=== PATIENT | female | born 1955 | race Caucasian/White ===

== ENCOUNTER 2020-11-29 23:02 | Inpatient (IN) | payer MEDICARE ==
[~2020-11-29] VITALS: Ht 154.9 cm; Wt 96.1 kg
[2020-11-29 23:05] VITALS: BP 129/91
[2020-11-29] MEDS ORDERED: METFORMIN HCL500 M3 PO (23:14)
[2020-11-29] MEDS ORDERED: ZOFRAN4 MG PO (23:15)
[2020-11-29] MEDS ORDERED: LEVO-T100 MCG PO (23:16)
[2020-11-29] MEDS ORDERED: LOMOTIL 2.5-0.01 TAB PO (23:16)
[2020-11-29] MEDS ORDERED: FUROSEMIDE 40 M40 MG PO (23:17)
[2020-11-29] MEDS ORDERED: KLOR-CON 10 ER10 MEQ PO (23:17)
[2020-11-29] MEDS ORDERED: MELOXICAM15 MG PO (23:17)
[2020-11-29] MEDS ORDERED: CHLORZOXAZONE500 MG PO (23:18)
[2020-11-29] MEDS ORDERED: ALLOPURINOL 10100 M3 PO (23:19)
[2020-11-29] MEDS ORDERED: ALPRAZOLAM XR3 MG PO (23:19)
[2020-11-29] MEDS ORDERED: DOXEPIN HC10 MG/1 ML PO (23:20)
[2020-11-29] MEDS ORDERED: SPIRONOLACTONE50 MG PO (23:21)
[2020-11-29] MEDS ORDERED: IRON18 M1 PO (23:22)
[2020-11-29] MEDS ORDERED: CINNAMON500 MG PO (23:23)
[2020-11-29 23:59] LABS: ABSOLUTE BASOPHILS 0.1 thou/uL (0.0-0.2); ABSOLUTE EOSINOPHILS 0.4 thou/uL (0.0-0.7); ABSOLUTE LYMPHOCYTES 0.9 thou/uL (0.8-5.3); ABSOLUTE MONOCYTES 1.3 thou/uL (0.0-1.2); ABSOLUTE NEUTROPHILS 6.3 thou/uL (1.6-8.1); BASOPHILS 0.9 %; EOSINOPHILS 4.4 %; HEMATOCRIT 32.9 % (37.0-47.0); LYMPHOCYTES 10.4 %; MCH 28.5 pg (26.0-34.0); MCHC 33.3 g/dL (28.0-37.0); MCV 85.6 fL (80.0-100.0); MONOCYTES 14.2 %; MPV 8.5 fl. (7.2-11.1); NUCLEATED RBCS 0 /100WBC; PLATELET COUNT* 310 thou/uL (150-400); POLYS 70.1 %; RBC 3.85 mil/uL (4.20-5.00); RDW-CV 14.1 % (10.5-14.5)
[2020-11-30 00:03] LABS: CALCIUM 7.9 mg/dL (8.5-10.1); POTASSIUM 4.2 mmol/L (3.5-5.1)
[2020-11-30 00:07] LABS: MAGNESIUM 2.1 mg/dL (1.8-2.4); TOTAL BILIRUBIN 0.8 mg/dL (<0.1-1.0); TOTAL PROTEIN 5.7 g/dL (6.4-8.2)
[2020-11-30 00:26] LABS: BE 2.7 mmol/L (-2 to +3); PCO2 40.3 mmHg (35.0-45.0); PO2 84.8 mmHg (75.0-100.0); pH 7.443 (7.340-7.450)
[2020-11-30 09:15] VITALS: BP 124/46
--- NOTE | 2020-11-30 09:15 | NUR ---
CENTRAL LINE ASSESSMENT, TRIPLE LUMEN ACCESSED AT LEFT SUBCLAVIAN. NO REDNESS OR INFLAMMATION NOTED AT SITE. DEFAULT SETTINGS ON IV PUMPS ACTIVE.
[2020-11-30 09:44] LABS: URINE BILIRUBIN NEGATIVE (Negative); URINE BLOOD NEGATIVE (Negative); URINE CLARITY CLEAR; URINE COLOR YELLOW; URINE GLUCOSE-RANDOM NEGATIVE (Negative); URINE KETONES NEGATIVE (Negative); URINE LEUKOCYTES-REFLEX NEGATIVE (Negative); URINE PROTEIN NEGATIVE (Negative); URINE UROBILINOGEN 0.2 E.U./dl (0.2-1.0)
[2020-11-30 09:45] LABS: URINE NITRITE-REFLEX POSITIVE (Negative)
[2020-11-30 09:57] LABS: BACTERIA-REFLEX >30 Many /HPF (None Seen); SQUAMOUS 0-3 Few /LPF (0-3); URINE RBC 0-2 Rare /HPF (0-2); URINE WBC-REFLEX 6-15 Few /HPF (0-5)
[2020-11-30 09:58] LABS: CRYSTALS None Seen /LPF (None Seen); HYALINE CASTS 4-10 Moderate /LPF (None Seen); MUCUS 0-3 Light strn/LPF (None Seen)
--- NOTE | 2020-11-30 10:33 | EKG ---
[place] [address] ELECTROCARDIOGRAM REPORT Name: JOHNALIDA SAMANTHA Room: [place] [address] ADM IN [facility]#: [id number] Admission: 11/30/20 Attend Phys: Torey Carl Discharge: Date of : 55 Date of Service: 11/29/202306 Report #: [id number] THIS REPORT FOR: //name// [facility] ED Test Date: 2020-11-29 Test Time: 23:07:01 Pat Name: ALIDA LOPEZ Department: Room: [facility] Gender: F [employer] Psychologist: JER : 1955 Requested By: Paola Claire Order Number: [id number] MD: Miguel Ángel Hayes Measurements Intervals [place] Rate: 80 P: 23 FL: 203 QRS: -2 QRSD: 105 T: -1 QT: 402 QTc: 464 Interpretive Statements Sinus rhythm Low voltage, precordial leads Borderline T abnormalities, inferior leads No previous ECG available for comparison Electronically Signed On 11-30-2020 10:32:57 CDT by Miguel Ángel Hayes [email or web address] <ELECTRONICALLY SIGNED> By: Miguel Ángel Hayes MD, [facility] 11/30/20 1032 2307 [id number] Miguel Ángel Hayes MD, [facility] /EPI
--- NOTE | 2020-11-30 12:06 | NUR ---
ASSUMED CARE AT 1205, REPORT TAKEN FROM CINDY LARSON.
[2020-11-30 13:15] VITALS: BP 128/54
--- NOTE | 2020-11-30 13:30 | NUR ---
CENTRAL LINE ASSESSMENT, TRIPLE LUMEN ACCESSED AT LEFT SUBCLAVIAN. NO REDNESS OR INFLAMMATION NOTED AT SITE. DEFAULT SETTINGS ON IV PUMPS ACTIVE. LEVOPHED STOPPED PER DR ORDOÑEZ.
[2020-11-30 19:30] VITALS: BP 115/73
[2020-11-30 23:30] VITALS: BP 109/41
[2020-12-01 02:18] VITALS: BP 109/41
[2020-12-01 03:58] VITALS: BP 103/60; BP 110/36
[2020-12-01 05:54] LABS: HEMATOCRIT 31.3 % (37.0-47.0); HEMOGLOBIN 10.5 gm/dL (12.0-15.0); MCH 29.2 pg (26.0-34.0); MCHC 33.6 g/dL (28.0-37.0); MCV 86.8 fL (80.0-100.0); MPV 8.7 fl. (7.2-11.1); RBC 3.6 mil/uL (4.20-5.00); RDW-CV 14.4 % (10.5-14.5); WBC 9.4 thou/uL (4.0-11.0)
[2020-12-01 07:07] LABS: CALCIUM 7.6 mg/dL (8.5-10.1)
[2020-12-01 07:09] LABS: CREATININE 0.8 mg/dL (0.6-1.3)
[2020-12-01 12:00] VITALS: BP 128/66
[2020-12-01 16:00] VITALS: BP 117/52
[2020-12-01 20:00] VITALS: BP 113/51
[2020-12-02 01:23] VITALS: BP 119/51
[2020-12-02 04:06] LABS: GLYCOHEMOGLOBIN (HGB A1C) 6.9 % (4.8-5.6)
[2020-12-02 05:36] VITALS: BP 118/55
--- NOTE | 2020-12-02 07:02 | NUR ---
PATIENT SLEPT PART OF THE NIGHT. PATIENT HAS HAD SEVERAL WATERY STOOLS. IV FLUIDS CONTINUE TO INFUSE ORDERED. PATIENT REMAINS IN ISOLATION FOR CDIFF. WILL CONTINUE TO MONITOR.
[2020-12-02 07:05] LABS: HEMATOCRIT 36.3 % (37.0-47.0); HEMOGLOBIN 11.8 gm/dL (12.0-15.0); MCH 28.2 pg (26.0-34.0); MCHC 32.4 g/dL (28.0-37.0); MCV 86.9 fL (80.0-100.0); MPV 8.2 fl. (7.2-11.1); RBC 4.18 mil/uL (4.20-5.00); RDW-CV 14.3 % (10.5-14.5); WBC 13.1 thou/uL (4.0-11.0)
[2020-12-02 07:08] LABS: CALCIUM 7.9 mg/dL (8.5-10.1); CREATININE 0.8 mg/dL (0.6-1.3); MAGNESIUM 1.6 mg/dL (1.8-2.4); POTASSIUM 3.1 mmol/L (3.5-5.1)
[2020-12-02 08:10] VITALS: BP 128/70
[2020-12-02 12:00] VITALS: BP 137/78
--- NOTE | 2020-12-02 12:39 | NUR ---
ASSUMED CARE OF PT AT 0730. PT A&0X4, DENIES ANY PAIN OR SHORTNESS OF BREATH AT THIS TIME. IN SPECIAL CONTACT ISOLATION FOR CDIFF. PT HAVING LOOSE STOOLS. TRACING SR/ST ON THE MEETING COORDINATOR. ON 3L NC SAT MID 90'S. PT UP WITH 1 ASSIST TO BSC. PT HAD ABDOMINAL XRAY SERIES THIS AM-AWAITING RESULTS AT THIS TIME. PT GOAL FOR TODAY IS INCREASE ACTIVITY AND REPLACE POTASSIUM AND MAGNESIUM PER ELECTROLYTE PROTOCOL. AM ASSESSMENT CHARTED. MEDICATIONS PER JUN. PT REPOSITIONS SELF WITH REMINDERS. HOURLY ROUNDING OBSERVED. BED IN LOW POSITION. CALL LIGHT WITHIN REACH. WILL CONTINUE PLAN OF CARE.
--- NOTE | 2020-12-02 15:20 | NUR ---
Pt is A&O. Resides at home with family. Independent. No DME. No hx of HH or SNF. Goal is home at dc, CM following for needs. Pt is cdiff positive, will need vanc at dc, CM to check the cost. Anticipate dc in a few days.
[2020-12-02 16:00] VITALS: BP 119/62
[2020-12-02 20:23] VITALS: BP 127/72
[2020-12-03 00:01] VITALS: BP 120/57
[2020-12-03 04:09] VITALS: BP 134/61
--- NOTE | 2020-12-03 04:27 | NUR ---
PT ALERT AND ORIENTED, 3L-NC. NEEDS ASSISTANCE TO BEDSIDE COMMODE. STILL HAVING FREQUENT LOOSE WATERY STOOLS. NPO SINCE MIDNIGHT. RECEIVED ALL ABX AND FLUIDS SCHEDULED. REPLACED MAG/K+. NO PAIN OR NAUSEA.
[2020-12-03 05:09] LABS: HEMATOCRIT 34.8 % (37.0-47.0); HEMOGLOBIN 11.7 gm/dL (12.0-15.0); MCH 29.1 pg (26.0-34.0); MCHC 33.6 g/dL (28.0-37.0); MCV 86.6 fL (80.0-100.0); MPV 8.1 fl. (7.2-11.1); RBC 4.02 mil/uL (4.20-5.00); RDW-CV 14.3 % (10.5-14.5); WBC 13.6 thou/uL (4.0-11.0)
[2020-12-03 05:22] LABS: CALCIUM 7.8 mg/dL (8.5-10.1); CREATININE 0.8 mg/dL (0.6-1.3); POTASSIUM 3.8 mmol/L (3.5-5.1)
[2020-12-03 08:10] VITALS: BP 152/72
[2020-12-03 09:38] LABS: % SATURATION 23 % (20-39); IRON 25 ug/dL (50-175)
[2020-12-03 12:00] VITALS: BP 100/50
--- NOTE | 2020-12-03 13:00 | NUR ---
Cdiff positive. Pt now having a high grade SBO, GI following. Anticiapte dc in a few days.
--- NOTE | 2020-12-03 13:57 | NUR ---
NGT PLACED IN RIGHT NARE AT 59CM AND HOOKED TO ILS. CXR ORDERED VERIFYING PLACEMENT. ORDERS RECEIVED FOR CT- UPON PT RETURNING FROM CT-NGT PULLED OUT >20 CM-NGT RE PLACED AND REPEAT CXR COMPLETED TO VERIFY PLACEMENT AGAIN. SCHEDULED VANCO RETENTION ENEMA GIVEN PER EMAR. NPO. SURGERY CONSULT IN PLACE. IVF. DENIES ANY PAIN OR SHORTNESS OF BREATH. AM ASSESSMENT CHARTED. MEDICATIONS PER MAR. CALL LIGHT WITHIN REACH. WILL CONTINUE PLAN OF CARE.
[2020-12-03 16:00] VITALS: BP 102/62
[2020-12-03 21:34] VITALS: BP 116/72
[2020-12-04 00:54] VITALS: BP 93/58
[2020-12-04 04:32] VITALS: BP 100/63
[2020-12-04 05:40] LABS: HEMATOCRIT 38.3 % (37.0-47.0); HEMOGLOBIN 12.8 gm/dL (12.0-15.0); MCH 29.2 pg (26.0-34.0); MCHC 33.3 g/dL (28.0-37.0); MCV 87.6 fL (80.0-100.0); RBC 4.38 mil/uL (4.20-5.00); RDW-CV 14.3 % (10.5-14.5); WBC 11.2 thou/uL (4.0-11.0)
[2020-12-04 05:55] LABS: CALCIUM 7.8 mg/dL (8.5-10.1); POTASSIUM 3.2 mmol/L (3.5-5.1)
[2020-12-04 08:30] VITALS: BP 96/44
[2020-12-04 09:04] VITALS: BP 91/44
[2020-12-04 12:00] VITALS: BP 100/52
--- NOTE | 2020-12-04 12:38 | NUR ---
Cdiff positive. GI following, Pt having diarrhea. Surgery following.
[2020-12-04 16:00] VITALS: BP 104/59
--- NOTE | 2020-12-04 17:58 | CON ---
[address] [address] CONSULTATION Name: ALIDA LOPEZ Room: [address] ADM IN [facility].R.#: [id number] Admission: 12/01/20 Attend Phys: Anup Woodruff Discharge: Date of : 55 Report #: [id number] THIS REPORT FOR: cc: Lambert Jordan James V. DO Namin, Farid M. MD ~ cc: Lambert Jordan DO DATE OF CONSULTATION: 12/03/2020 Please note, at the time of this dictation, the patient was seen by myself. HISTORY OF PRESENT ILLNESS: This is a 65-year-old female who has been having profound weakness and diarrhea and felt very lightheaded for the last couple of weeks. She states she has had diarrhea for about 3 weeks and has gotten progressively worse. She states prior to the onset of her diarrhea, she had been treated for a UTI. She does not recall the medication at that time and then shortly thereafter, she began developing diarrhea and she has gone downhill since that time. On Wednesday, she went to [place]. She was treated and released with some IV fluids. She got 2 liters of normal saline and some nausea medicine and was released. She denies any nausea or vomiting, but she has only been doing clear liquids. She states her abdomen is somewhat a lot more distended with some discomfort and profuse diarrhea. She said, since she has been here and started on the vancomycin, her diarrhea has improved and she is only going about once every 3-4 hours now versus prior to, it was all the time. The patient states she has never had an EGD, but she had a colonoscopy greater than 10 years ago at [facility] and we will obtain those records for our review. The patient states, prior to all of this, her bowel habits were fairly normal. She continues to deny any bright red blood or melena in her stool. ALLERGIES: SULFA AND CODEINE. MEDICATIONS: From home include cinnamon bark, iron, spironolactone, doxepin, alprazolam, allopurinol, potassium, Lasix, meloxicam, levothyroxine, Lomotil, Zofran and metformin. PAST MEDICAL HISTORY: Includes diabetes, thyroid disease, congestive heart failure, gout, anxiety, depression, and iron-deficiency anemia. PAST SURGICAL HISTORY: None. FAMILY HISTORY: Negative for any GI or female cancers [place] [address] CONSULTATION Name: ALIDA LOPEZ Room: [address] IN [facility]#: [id number] Admission: 12/01/20 Attend Phys: Anup Woodruff Discharge: Date of : 55 Report #: [id number] SOCIAL HISTORY: Denies any tobacco, alcohol or illegal drug use. REVIEW OF SYSTEMS: Twelve-point review of systems is essentially negative, except what is mentioned in the HPI. PHYSICAL EXAMINATION: VITAL SIGNS: Temperature 35.7, pulse 112, respirations 18, blood pressure 134/61. HEART: Regular rate and rhythm, somewhat tachycardic. LUNGS: Clear, but diminished. ABDOMEN: Taut. Hyperactive bowel sounds in the upper quadrants. Percussion tympany noted with some tenderness noted mainly in the upper. LABORATORY DATA: Hemoglobin is 11.7, white count is 13.6, platelets are 374. GFR is 72. She did show a urinary tract infection again of E. coli. Abdominal x-ray shows ahaustral appearance of the transverse colon. She has a small bowel high-grade obstruction with significant dilated small bowel loops. No measurement noted of the small bowel loops. IMPRESSION: 1. Diarrhea. 2. Abdominal pain. 3. Leukocytosis. 4. Abnormal abdominal x-ray indicating small bowel obstruction, high grade. 5. Anemia. 6. Positive for urinary tract infection. PLAN: 1. Consult Surgery, Dr. Hooper. 2. Insert a NG tube to intermittent low suction. 3. Continue her vancomycin. 4. Obtain labs, iron studies, ferritin, and B12. 5. Obtain records from [facility] for our review. Thank you for allowing us to participate in this patient's care. Please do not hesitate to call with any questions in regard to this consult. <ELECTRONICALLY SIGNED> By: Bulmaro Anand MD 12/04/20 1758 0717 [id number] Anand MD /nt
--- NOTE | 2020-12-04 18:20 | NUR ---
PT DENIES ANY PAIN, NAUSEA OR SHORTNESS OF BREATH. IVF. TOLERATING CLEAR LIQUID DIET. GI AND SURGERY CONSULT IN PLACE. REPEAT KUB IN AM. PT CONTINUES TO HAVE LIQUID STOOLS. ABDOMEN LESS FIRM. CALL LIGHT WITHIN REACH. WILL CONTINUE PLAN OF CARE.
[2020-12-05] VITALS: BP 109/59
[2020-12-05 04:08] VITALS: BP 99/64
--- NOTE | 2020-12-05 04:49 | NUR ---
PT REPORTS DIARRHEA IMPROVING, LESS FREQUENT. NO REPORTS OF PAIN OR NAUSE JUST SOME HEARTBURN. CAN GET UP WITH ASSISTANCE TO BEDSIDE COMMODE. TOLERATING CLEAR LIQUIDS WELL. SLEPT WELL THIS SHIFT.
[2020-12-05 05:21] LABS: HEMOGLOBIN 12.5 gm/dL (12.0-15.0); MCH 28.2 pg (26.0-34.0); MPV 7.6 fl. (7.2-11.1); RBC 4.44 mil/uL (4.20-5.00); RDW-CV 14.6 % (10.5-14.5); WBC 10.4 thou/uL (4.0-11.0)
[2020-12-05 05:31] LABS: CALCIUM 7.5 mg/dL (8.5-10.1); CREATININE 0.8 mg/dL (0.6-1.3); MAGNESIUM 2.1 mg/dL (1.8-2.4)
[2020-12-05 12:00] VITALS: BP 100/30
--- NOTE | 2020-12-05 12:15 | NUR ---
Anticipate dc in a few days. GI following. Surg following for SBO. Cdiff positive. Pt will need to have diet advanced prior to dc.
--- NOTE | 2020-12-05 15:31 | NUR ---
ASSUMED PT CARE AT 0730. PT IS A&O X4,COOPERATIVE AND SOFT SPOKEN. PT CONTINUES ON ISOLATION FOR CDIFF. PT HAD 1 LOOSE STOOL TODAY. ASSESSMENT COMPLETED, PT DENIES ANY PAIN OR DISCOMFORT. PT VERBALIZES SHE IS ANXIOUS TO GET HOME. SAFETY MEASURES IN PLACE. PT TOLERATING CLEAR LIQUIDS WELL. PT HYPOTENSIVE AT TIMES AND IS ASYMPTOMATIC. BP 100/30 AND RECHECKED AFTER 15 MIN 104/66. PT STATES THIS IS NORMAL FOR HER. ASSIST X1 UP TO BSC. KUB REPEATED TODAY AND RESULTS ON CHART.
[2020-12-05 16:00] VITALS: BP 104/61
[2020-12-05 21:36] VITALS: BP 97/55
[2020-12-05 23:23] VITALS: BP 113/53
[2020-12-06 04:00] VITALS: BP 118/49
--- NOTE | 2020-12-06 04:33 | NUR ---
PT A&OX4, VSS ON 2L NC, PT UP WITH ASSIST TO BSC. IV SALINE LOCKED, ISOLATION MAINTAINED FOR C.DIFF+, NO CO PAIN OR DISCOMFORT. ST WITH PAC'S ON TELE MONITOR. WILL CONTINUE TO MONITOR.
[2020-12-06 07:20] VITALS: BP 113/54
[2020-12-06 07:27] LABS: HEMATOCRIT 37.7 % (37.0-47.0); HEMOGLOBIN 12.3 gm/dL (12.0-15.0); MCH 28.4 pg (26.0-34.0); MCHC 32.7 g/dL (28.0-37.0); MCV 86.8 fL (80.0-100.0); MPV 8.5 fl. (7.2-11.1); RBC 4.35 mil/uL (4.20-5.00); RDW-CV 14.4 % (10.5-14.5); WBC 15.1 thou/uL (4.0-11.0)
[2020-12-06 07:39] LABS: CALCIUM 7.7 mg/dL (8.5-10.1); CREATININE 0.7 mg/dL (0.6-1.3); MAGNESIUM 1.8 mg/dL (1.8-2.4); POTASSIUM 3.4 mmol/L (3.5-5.1)
--- NOTE | 2020-12-06 09:45 | EKG ---
[place] [address] ELECTROCARDIOGRAM REPORT Name: ALIDA LOPEZ Room: [address] ADM IN .R.#: [id number] Admission: 12/01/20 Attend Phys: Torey Carl Discharge: Date of : 55 Date of Service: 12/06/20 0725 Report #: [id number] THIS REPORT FOR: //name// [facility] Test Date: 2020-12-06 Test Time: 07:25:28 Pat Name: ALIDA LOPEZ Department: Room: [address] Gender: F Remote Operations Producer: REMEDIOS : 1955 Requested By: Mu Kang Order Number: [id number] Reading MD: Miguel Ángel Hayes Measurements Intervals [place] Rate: 177 P: [place]: QRS: 4 QRSD: 64 T: -27 QT: 289 QTc: 496 Interpretive Statements Atrial fibrillation nonspecific t wave changes Low voltage, precordial leads Borderline prolonged QT interval Compared to ECG 11/29/2020 23:07:01 Sinus rhythm no longer present Electronically Signed On 12-06-2020 9:45:42 CDT by Miguel Ángel Hayes [email or web address] <ELECTRONICALLY SIGNED> By: Miguel Ángel Hayes MD, [facility] 12/06/20 0945 4 Miguel Ángel Hayes MD, [facility] /EPI
[2020-12-06 12:00] VITALS: BP 108/57
--- NOTE | 2020-12-06 13:15 | 2DMMODE ---
[place] [address] 2 D/M-MODE ECHOCARDIOGRAM Name: ALIDA LOPEZ Room: [address] ADM IN .[place].#: [id number] Admission: 12/01/20 Attend Phys: Torey Carl Discharge: Date of : 55 Date of Service: 12/06/20 1315 Report #: [id number] THIS REPORT FOR: cc: Lambert Jordan James V. DO Blick,Miguel Ángel Watters MD [facility] ~ APPROVED REPORT Study performed: 12/06/2020 11:15:52 EXAM: Comprehensive 2D, Doppler, and color-flow Echocardiogram Patient Location: In-Patient Room #: [facility] Status: routine BSA: 1.93 HR: 112 bpm BP: 113/54 mmHg Rhythm: Atrial Fibrillation Other Information Study Quality: Adequate Indications Atrial Fibrillation 2D Dimensions IVSd: 11.47 (7-11mm) LVOT Diam: 21.77 (18-24mm) LVDd: 41.32 mm PWd: 8.51 (7-11mm) Ascending Ao: 35.07 (22-36mm) LVDs: 32.70 (25-40mm) Aortic Root: 29.03 mm Aortic Valve AoV Peak Niko.: 0.94 m/s AO Peak Gr.: 3.54 mmHg AO Mean Gr.: 2.31 mmHg AO V2 VTI: 11.68 cm Pulmonary Valve PV Peak Niko.: 1.01 m/s PV Peak Gr.: 4.09 mmHg Tricuspid Valve RAP Estimate: 5.00 mmHg TR Peak Gr.: 18.30 mmHg RVSP: 23.00 [place] [address] 2 D/M-MODE ECHOCARDIOGRAM Name: ALIDA LOPEZ SAMANTHA Room: [address] IN [facility].#: [id number] Admission: 12/01/20 Attend Phys: Torey Carl Discharge: Date of : 55 Date of Service: 12/06/20 1315 Report #: [id number] Pressure: 23.00 mmHg Left Ventricle The left ventricle is normal size. akinesis of the mid and distal anteroseptal wall and apex There is normal left ventricular wall thickness. Left ventricular systolic function is moderate to severely decreased. LVEF is 30-35%. This study is not technically sufficient to allow evaluation of the LV diastolic function. Right Ventricle The right ventricle is normal size. The right ventricular systolic function is normal. Atria The left atrium size is normal. The right atrium size is normal. Aortic Valve Mild aortic valve sclerosis. No aortic regurgitation is present. There is no aortic valvular stenosis. Mitral Valve The mitral valve is normal in structure. There is no mitral valve regurgitation noted. No evidence of mitral valve stenosis. Tricuspid Valve The tricuspid valve is normal in structure. Mild tricuspid regurgitation. No pulmonary hypertension. Pulmonic Valve Pulmonic valve is not well visualized. Trace pulmonic regurgitation. Great Vessels The aortic root is normal in size. IVC is normal in size and collapses >50% with inspiration. Pericardium There is no pericardial effusion. <Conclusion> LVEF is 30-35%. [place] [address] 2 D/M-MODE ECHOCARDIOGRAM Name: ALIDA LOPEZ Room: [address] IN .R.#: [id number] Admission: 12/01/20 Attend Phys: Torey Carl Discharge: Date of : 55 Date of Service: 12/06/201314 Report #: [id number] akinesis of the mid and distal anteroseptal wall and apex Mild aortic valve sclerosis. <ELECTRONICALLY SIGNED> By: Miguel Ángel Hayes MD, FACC 12/06/201314 14 14 Miguel Ángel Hayes MD, FACC /INF
[2020-12-06 16:00] VITALS: BP 112/65
--- NOTE | 2020-12-06 16:10 | NUR ---
GI and surgery continue to following. No weekend dc planned.
--- NOTE | 2020-12-06 17:43 | EKG ---
[place] [address] ELECTROCARDIOGRAM REPORT Name: ALIDA LOPEZ Room: [address] ADM IN ..#: [id number] Admission: 12/01/20 Attend Phys: Torey Carl Discharge: Date of : 55 Date of Service: 12/06/20 1054 Report #: [id number] THIS REPORT FOR: //name// [facility] Test Date: 2020-12-06 Test Time: 10:54:17 Pat Name: ALIDA LOPEZ Department: Room: [address] Gender: F [employer] Attendant: GURPREET : 1955 Requested By: Miguel Ángel Hayes Order Number: [id number] Reading MD: Miguel Ángel Hayes Measurements Intervals [place] Rate: 113 P: 35 CO: 163 QRS: -24 QRSD: 68 T: QT: 343 QTc: 471 Interpretive Statements Sinus tachycardia Inferior infarct, old Anterior infarct, age indeterminate Baseline wander in lead(s) II,III,aVR,aVL,aVF,V1,V2,V3,V5,V6 Compared to ECG 12/06/2020 07:25:28 Atrial fibrillation no longer present Electronically Signed On 12-06-2020 17:43:08 CDT by Miguel Ángel Hayes [email or web address] <ELECTRONICALLY SIGNED> By: Miguel Ángel Hayes MD, [facility] 12/06/20 1743 1054 1054 Miguel Ángel Hayes MD, [facility] /EPI
--- NOTE | 2020-12-06 20:51 | NUR ---
ASSUMED PT CARE AT 0730. PT UP TO BSC AND HEART RATE 170-180'S. EKG AND VS OBTAINED. PHYSICIAN INFORMED AND NEW ORDERS WERE TO OBTAINED AND IMPLEMENTED. PT WITH NORMAL RHYTHM IN 80'S POST INTERVENTION. ASSESSMENT COMPLETED AND MEDICATIONS ADMINISTERED ORDERED. DIET UPGRADED FROM CLEAR LIQUID TO FIBER DIET. PT TOLERATED DINNER WELL. PT UP TO BSC WITH ASSIST X1 THIS SHIFT. TWO LOOSE STOOLS THIS SHIFT. PT NOW ON RA AND MAINTAINING SATS IN THE MID T0 UPPER 90'S. SAFETY MEASURES IN PLACE. PT CONTINUES TO MAINTAIN HEART RATE 80-90'S.
[2020-12-06 22:02] VITALS: BP 114/45
[2020-12-06 23:53] VITALS: BP 88/47
[2020-12-07 03:57] VITALS: BP 105/34
[2020-12-07 06:50] LABS: HEMATOCRIT 38.9 % (37.0-47.0); HEMOGLOBIN 12.4 gm/dL (12.0-15.0); MCH 28.1 pg (26.0-34.0); MCHC 31.9 g/dL (28.0-37.0); MCV 88.1 fL (80.0-100.0); MPV 8.7 fl. (7.2-11.1); NUCLEATED RBCS 0 /100WBC; PLATELET COUNT* 138 thou/uL (150-400); RBC 4.41 mil/uL (4.20-5.00); RDW-CV 14.6 % (10.5-14.5); WBC 17.2 thou/uL (4.0-11.0)
[2020-12-07 07:08] LABS: ALBUMIN 1.7 g/dL (3.4-5.0); ALKALINE PHOSPHATASE 292 U/L (46-116); ANION GAP 7 mmol/L (7-16); BUN 18 mg/dL (7-18); CALCIUM 7.5 mg/dL (8.5-10.1); CHLORIDE 101 mmol/L (98-107); CHOLESTEROL < 50 mg/dL (<200); CO2 26 mmol/L (21-32); CREATININE 0.9 mg/dL (0.6-1.3); GLUCOSE 75 mg/dL (70-99); HDL CHOLESTEROL 9 mg/dL (>40); LDL CHOLESTEROL 30 mg/dL (<100); POTASSIUM 4.1 mmol/L (3.5-5.1); SGOT 103 U/L (15-37); SGPT 47 U/L (30-65); SODIUM 134 mmol/L (136-145); TC:HDL 5.6 Ratio (Not establshd); TOTAL BILIRUBIN 0.9 mg/dL (<0.1-1.0); TRIGLYCERIDE 59 mg/dL (<150); VLDL 12 mg/dL (<40)
[2020-12-07 07:13] LABS: SERUM ASSESSMENT Clear
[2020-12-07 08:13] LABS: ABSOLUTE EOSINOPHILS 0.3 thou/uL (0.0-0.7); ABSOLUTE LYMPHOCYTES 1.2 thou/uL (0.8-5.3); ABSOLUTE MONOCYTES 1.5 thou/uL (0.0-1.2); ABSOLUTE NEUTROPHILS 14.1 thou/uL (1.6-8.1); PLATELET ESTIMATE ADEQUATE; TOXIC GRANULATION 2+
[2020-12-07 08:15] VITALS: BP 103/58
--- NOTE | 2020-12-07 18:46 | NUR ---
PATIENT HAS REMAINED A&OX4, PLEASANT AND COOPERATIVE WITH CARES THIS SHIFT. PATIENT CONTINUES TO C/O LOOSE STOOLS. MEDICATIONS ADMINISTERED ORDERED. PATIENT UP TO CHAIR FOR ONE MEAL TODAY. CALL LIGHT AND FREQUENTLY USED ITEMS WITHIN REACH.
[2020-12-07 19:48] VITALS: BP 128/78
[2020-12-07 21:00] VITALS: BP 114/66
[2020-12-07 23:30] VITALS: BP 114/52
[2020-12-08 03:45] VITALS: BP 102/43
[2020-12-08 04:50] LABS: ABSOLUTE BASOPHILS 0.1 thou/uL (0.0-0.2); ABSOLUTE EOSINOPHILS 0.3 thou/uL (0.0-0.7); ABSOLUTE LYMPHOCYTES 1.8 thou/uL (0.8-5.3); ABSOLUTE NEUTROPHILS 11.5 thou/uL (1.6-8.1); BASOPHILS 0.8 %; EOSINOPHILS 1.9 %; HEMATOCRIT 38.5 % (37.0-47.0); HEMOGLOBIN 12.6 gm/dL (12.0-15.0); LYMPHOCYTES 12.2 %; MCH 28.4 pg (26.0-34.0); MCHC 32.7 g/dL (28.0-37.0); MPV 8.9 fl. (7.2-11.1); NUCLEATED RBCS 0 /100WBC; PLATELET COUNT* 135 thou/uL (150-400); POLYS 78.1 %; RBC 4.42 mil/uL (4.20-5.00); RDW-CV 14.6 % (10.5-14.5); WBC 14.7 thou/uL (4.0-11.0)
[2020-12-08 04:56] LABS: ALBUMIN 1.7 g/dL (3.4-5.0); CALCIUM 7.6 mg/dL (8.5-10.1); POTASSIUM 4.7 mmol/L (3.5-5.1); TOTAL BILIRUBIN 0.8 mg/dL (<0.1-1.0); TOTAL PROTEIN 5.4 g/dL (6.4-8.2)
--- NOTE | 2020-12-08 06:58 | NUR ---
Alert and oriented x 4. Vitals are stable. She is up frequently to the bedside commode. I did hold sotolol because BP was on the low side of normal. She has had a large amount of loose stool this shift. She has been awake frequently.
[2020-12-08 07:53] VITALS: BP 115/64
[2020-12-08 12:00] VITALS: BP 91/37
[2020-12-08 16:00] VITALS: BP 94/46
[2020-12-08 20:00] VITALS: BP 110/51
--- NOTE | 2020-12-08 20:20 | NUR ---
patient had episode of bloody, incontinent diarrhea at 1800. Dr Acevedo notified. No new orders at this time regarding this. Continue to monitor.
[2020-12-09] VITALS: BP 106/44
[2020-12-09 04:26] VITALS: BP 98/48
--- NOTE | 2020-12-09 04:26 | NUR ---
ASSUMED PT CARE AT APPROX 1930. PT IS AWAKE AND ORIENTED X4. PT IS NOT IN DISTRESS, NO DESATURATIONS NOTED ON ROOM AIR. PT IS TRACING SR ON THE INK TECHNICIAN. PT DENIES PAIN/DISCOMFORT THIS SHIFT. PT STILL HAS LOOSE BOWEL MOVEMENTS, SMALL AMOUNT OF BLOOD TINGED MUCOUS NOTED. NO OTHER CHANGES THIS SHIFT. CALL LIGHT WITHIN REACH. HOURLY ROUNDING DONE FOR PT SAFETY. FALL PRECAUTIONS IN PLACE.
[2020-12-09 06:00] LABS: ABSOLUTE BASOPHILS 0.1 thou/uL (0.0-0.2); ABSOLUTE EOSINOPHILS 0.2 thou/uL (0.0-0.7); ABSOLUTE LYMPHOCYTES 1.1 thou/uL (0.8-5.3); ABSOLUTE MONOCYTES 0.7 thou/uL (0.0-1.2); ABSOLUTE NEUTROPHILS 6.3 thou/uL (1.6-8.1); BASOPHILS 0.8 %; EOSINOPHILS 2.5 %; HEMATOCRIT 33.7 % (37.0-47.0); LYMPHOCYTES 13.4 %; MCH 28.6 pg (26.0-34.0); MCHC 32.7 g/dL (28.0-37.0); MCV 87.4 fL (80.0-100.0); MPV 8.8 fl. (7.2-11.1); NUCLEATED RBCS 0 /100WBC; PLATELET COUNT* 127 thou/uL (150-400); POLYS 75.3 %; RBC 3.86 mil/uL (4.20-5.00); RDW-CV 14.4 % (10.5-14.5); WBC 8.3 thou/uL (4.0-11.0)
[2020-12-09 06:17] LABS: ALBUMIN 1.8 g/dL (3.4-5.0); CALCIUM 7.4 mg/dL (8.5-10.1); CREATININE 0.9 mg/dL (0.6-1.3); POTASSIUM 4.7 mmol/L (3.5-5.1); TOTAL BILIRUBIN 0.6 mg/dL (<0.1-1.0); TOTAL PROTEIN 4.9 g/dL (6.4-8.2)
[2020-12-09 06:35] VITALS: BP 101/48
[2020-12-09 06:43] LABS: PREALBUMIN 8.8 mg/dL (18.0-35.7)
[2020-12-09] MEDS ORDERED: VANCOMYCIN HCL125 MG PO (07:34)
[2020-12-09] MEDS ORDERED: ELIQUIS5 MG PO (07:34)
[2020-12-09] MEDS ORDERED: SORINE 80 MG TA80 M1 PO (07:34)
[2020-12-09 09:15] VITALS: BP 98/53
--- NOTE | 2020-12-09 10:46 | EKG ---
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: DAYLIN : 1955 Requested By: Torey Carl Order Number: [id number] Yuliet MD: Miguel Ángel Hayes Measurements Intervals [place] Rate: 80 P: 52 [place]: 168 QRS: -8 QRSD: 103 T: 173 QT: 445 QTc: 514 Interpretive Statements Sinus rhythm Low voltage, precordial leads Nonspecific T abnormalities, diffuse leads Prolonged QT interval Compared to ECG 12/06/2020 10:54:17 T-wave abnormality now present Prolonged QT interval now present Sinus tachycardia no longer present Electronically Signed On 12-09-2020 10:46:18 CDT by Miguel Ángel Hayes [email or web address] <ELECTRONICALLY SIGNED> By: Miguel Ángel Hayes MD, [facility] 12/09/20 1046 1 1 Miguel Ángel Hayes MD, [facility] /EPI
[2020-12-09 13:44] VITALS: BP 98/53
--- NOTE | 2020-12-09 13:51 | NUR ---
Pt discharging to home today, HH [facility]. Family in room and will transport.
--- NOTE | 2020-12-09 14:27 | NUR ---
ASSUMED PT CARE AT 0730. PT IS A&OX4. PT CONTINUES ON ISOLATION FOR C-DIFF. 1 EPISODE OF LOOSE STOOL TODAY. PT UP [facility] ASSIST X1 TO BSC. SAFETY MEASURES IN PLACE. PT DENIES ANY PAIN OR DISCOMFORT AT THIS TIME. NEW ORDER TO DISCHARGE PT TO HOME WITH SISTER. DISCHARGE ORDERS REVIEWED WITH PT AND PT VERBALIZES UNDERSTANDING. SISTER HERE AT APPROX 1415 TO TRANSFER PT TO HOME. HEART MONITOR REMOVED AND IV'S DC'D BY THIS TIME CYCLE OPERATOR.PT TRANSFERRED VIA BY NURSING STAFF, ALL BELONGINGS WITH PT.
--- NOTE | 2020-12-10 11:11 | CON ---
[address] [address] CONSULTATION Name: ALIDA LOPEZ Room: [address] IN M.R.#: [id number] Admission: 12/01/20 Attend Phys: Anup Woodruff Discharge: 12/09/20 Date of : 55 Report #: [id number] THIS REPORT FOR: cc: Lambert Jordan,Miguel Ángel [place] MD [facility] ~ cc: Lambert Jordan DO DATE OF CONSULTATION: 12/06/2020 CARDIOLOGY CONSULTATION PRIMARY CARE PHYSICIAN: Lambert Jordan DO HISTORY OF PRESENT ILLNESS: The patient is a 65-year-old single white female, who I was asked to see in the hospital today after she was noted to be in atrial fibrillation. The patient has no previous history of heart disease. She is not very active at this time. Apparently, a couple weeks ago, she had a urinary tract infection and was prescribed antibiotics by her primary care physician; and last week, she developed watery diarrhea. She was admitted to [place] a week ago. She is found to have C. difficile colitis. Her diarrhea has improved. On the monitor, she was noted to be in atrial fibrillation. Cardiology consultation requested. She denies a history of exertional chest tightness or shortness of breath. She denied any complaints of palpitations, lightheadedness, syncope or peripheral edema. Her appetite has improved. She has had no recent fever. PAST MEDICAL HISTORY: She had breast cancer with surgery followed by chemotherapy and radiation therapy. She has had carpal tunnel surgery. She has a history of diabetes and hyperlipidemia. MEDICATIONS: Her medications on admission included metformin, Synthroid, meloxicam, Lasix, potassium, allopurinol, Xanax, doxepin, spironolactone. ALLERGIES: SHE HAS A PREVIOUS INTOLERANCE TO CODEINE AND SULFA DRUGS. FAMILY HISTORY: Her mother had atrial fibrillation. SOCIAL HISTORY: Single. She lives here in [place] by herself. 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 No smoking or alcohol abuse. REVIEW OF SYSTEMS: She is overweight being 5 feet 1 inch, 204 pounds. She denies a history of snoring, stroke, asthma or liver disease. She has had kidney stones in the past. No chronic skin condition. [place] [address] CONSULTATION Name: ALIDA LOPEZ Room: [address]#: [id number] Admission: 12/01/20 Attend Phys: Anup Woodruff Discharge: 12/09/20 Date of : 55 Report #: [id number] PHYSICAL EXAMINATION: GENERAL: Revealed an elderly female lying in bed. She appeared in no distress. VITAL SIGNS: She had a blood pressure of 110/68; pulse is 115 and irregular; she is afebrile. HEENT: She was anicteric. Conjunctivae are pink. Mucous membranes moist. NECK: Neck veins do not appear distended. No carotid bruits. CHEST: Clear to auscultation. CARDIAC: Regular, tachycardia. No significant murmur. ABDOMEN: Obese. EXTREMITIES: He has had no pitting edema. Dorsalis pedis pulse cannot be palpated. SKIN: Cool and dry. NEUROLOGIC: Nonfocal. ECG on admission a week ago showed a sinus rhythm, nonspecific T-wave changes. On the monitor, after admission, she was noted to have occasional PVC. She had episodes of sinus tachycardia. Then, on this morning, she went into a narrow complex tachycardia consistent with atrial fibrillation with rapid ventricular response rate. WORKUP: Her workup since her admission: She had a portable chest x-ray that showed some atelectasis, otherwise unremarkable. She had a CT scan of the abdomen because of her diarrhea that showed small pleural effusion, some atelectasis, small amount of ascites, colonic distention. LABORATORY DATA: Her lab work: Sodium 136, creatinine 0.7. Albumin is only 2.0. Her white blood cell count 15.1, hemoglobin 12.3. Her COVID antigen stat test was negative. C. difficile PCR was positive. Urinalysis negative for protein. IMPRESSION AND RECOMMENDATIONS: 1. Atrial fibrillation. Agree with diltiazem to slow the ventricular response rate. Because of her age and sex, I would consider anticoagulation. If she fails to convert, I would consider cardioversion. 2. Recent treatment for Clostridium difficile colitis, most likely secondary to antibiotic for urinary tract infection. 3. History of breast cancer. 4. Diabetes mellitus. 5. [place] [address] CONSULTATION Name: ALIDA LOPEZ Room: [address]#: [id number] Admission: 12/01/20 Attend Phys: Anup Woodruff Discharge: 12/09/20 Date of : 55 Report #: [id number] 6. Obesity. 7. History of kidney stones. <ELECTRONICALLY SIGNED> By: Miguel Ángel Hayes MD, FACC 12/10/20 1111 0754 0917Davianup Hayes MD, FACC /nt
== END 2020-12-09 14:00 | disposition home health service (06) | DRG 871 ==
LOC: EDBD 23:02 → M.ERS 23:02 → M.TBA-ER 11-30 05:28 → M.ERS 11-30 05:28 → M.TBA-ER 12-01 01:45 → M.2W 12-01 02:35
PROVIDERS: Internal Medicine; Internal Medicine Cardiovascular Disease; Nurse Practitioner Adult Health; Personal Emergency Response Attendant; Surgery; ADMIT Internal Medicine; ATTEND Internal Medicine
PROC: 02HV33Z Insertion of Infusion Device into Superior Vena Cava, Percutaneous Approach (ICD-10-PCS; principal; 2020-12-01)
PROC: B548ZZA Ultrasonography of Superior Vena Cava, Guidance (ICD-10-PCS; principal; 2020-12-01)
PROC: 0D9670Z Drainage of Stomach with Drainage Device, Via Natural or Artificial Opening (ICD-10-PCS; 2020-12-03)
DX: A41.9 Sepsis, unspecified organism (principal); R65.21 Severe sepsis with septic shock; N17.0 Acute kidney failure with tubular necrosis; E43 Unspecified severe protein-calorie malnutrition; I50.23 Acute on chronic systolic (congestive) heart failure; N39.0 Urinary tract infection, site not specified; A04.72 Enterocolitis due to Clostridium difficile, not specified as recurrent; E87.1 Hypo-osmolality and hyponatremia; K56.609 Unspecified intestinal obstruction, unspecified as to partial versus complete obstruction; Z68.41 Body mass index [BMI] 40.0-44.9, adult; E66.9 Obesity, unspecified; E11.9 Type 2 diabetes mellitus without complications; M10.9 Gout, unspecified; F41.9 Anxiety disorder, unspecified; F32.9 Major depressive disorder, single episode, unspecified; D50.9 Iron deficiency anemia, unspecified; I95.9 Hypotension, unspecified; E78.5 Hyperlipidemia, unspecified; E86.0 Dehydration; E07.9 Disorder of thyroid, unspecified; I48.0 Paroxysmal atrial fibrillation; I25.5 Ischemic cardiomyopathy; Z20.822 Contact with and (suspected) exposure to COVID-19; Z79.84 Long term (current) use of oral hypoglycemic drugs; Z79.899 Other long term (current) drug therapy; Z88.2 Allergy status to sulfonamides; Z88.5 Allergy status to narcotic agent; Z85.3 Personal history of malignant neoplasm of breast; Z92.21 Personal history of antineoplastic chemotherapy; Z92.3 Personal history of irradiation

== ENCOUNTER 2020-12-09 18:55 | Inpatient (IN) | payer MEDICARE ==
[~2020-12-09] VITALS: Ht 154.9 cm; Wt 90.7 kg
[~2020-12-09 18:55] MED LIST: ALLOPURINOL 10100 M3 PO; ALPRAZOLAM XR3 MG PO; CHLORZOXAZONE500 MG PO; CINNAMON500 MG PO; DOXEPIN HC10 MG/1 ML PO; ELIQUIS5 MG PO; FUROSEMIDE 40 M40 MG PO; IRON18 M1 PO; KLOR-CON 10 ER10 MEQ PO; LEVO-T100 MCG PO; LOMOTIL 2.5-0.01 TAB PO; MELOXICAM15 MG PO; METFORMIN HCL500 M3 PO; SORINE 80 MG TA80 M1 PO; SPIRONOLACTONE50 MG PO; VANCOMYCIN HCL125 MG PO; ZOFRAN4 MG PO
[2020-12-09 19:04] VITALS: BP 82/51
[2020-12-09 19:52] LABS: HEMOGLOBIN 11.6 gm/dL (12.0-15.0); MCH 28.3 pg (26.0-34.0); MCHC 32.3 g/dL (28.0-37.0); MCV 87.4 fL (80.0-100.0); MPV 8.8 fl. (7.2-11.1); NUCLEATED RBCS 0 /100WBC; PLATELET COUNT* 148 thou/uL (150-400); RBC 4.12 mil/uL (4.20-5.00); RDW-CV 14.6 % (10.5-14.5); WBC 6.5 thou/uL (4.0-11.0)
[2020-12-09 19:57] LABS: CALCIUM 7.5 mg/dL (8.5-10.1); CREATININE 1.2 mg/dL (0.6-1.3); POTASSIUM 5.3 mmol/L (3.5-5.1)
[2020-12-09 20:07] LABS: MAGNESIUM 1.7 mg/dL (1.8-2.4); TOTAL BILIRUBIN 0.6 mg/dL (<0.1-1.0); TOTAL PROTEIN 5.5 g/dL (6.4-8.2)
[2020-12-09 20:17] LABS: ABSOLUTE BASOPHILS 0.1 thou/uL (0.0-0.2); ABSOLUTE EOSINOPHILS 0.1 thou/uL (0.0-0.7); ABSOLUTE LYMPHOCYTES 0.7 thou/uL (0.8-5.3); ABSOLUTE MONOCYTES 0.5 thou/uL (0.0-1.2); ABSOLUTE NEUTROPHILS 5.1 thou/uL (1.6-8.1); ATYPICAL LYMPHS 2 %; METAMYELOCYTES 1 %; PLATELET ESTIMATE DECREASED
[2020-12-09 21:35] LABS: URINE BILIRUBIN NEGATIVE (Negative); URINE BLOOD NEGATIVE (Negative); URINE CLARITY CLEAR; URINE COLOR YELLOW; URINE GLUCOSE-RANDOM NEGATIVE (Negative); URINE KETONES NEGATIVE (Negative); URINE LEUKOCYTES-REFLEX NEGATIVE (Negative); URINE NITRITE-REFLEX NEGATIVE (Negative); URINE PROTEIN NEGATIVE (Negative); URINE UROBILINOGEN 0.2 E.U./dl (0.2-1.0)
[2020-12-10 02:48] VITALS: BP 117/56
[2020-12-10 03:13] VITALS: BP 99/44
[2020-12-10 08:02] LABS: BE -3.1 mmol/L (-2 to +3); PCO2 38.7 mmHg (35.0-45.0); pH 7.369 (7.340-7.450)
[2020-12-10 08:06] LABS: PO2 242.2 mmHg (75.0-100.0)
[2020-12-10 08:09] LABS: ABSOLUTE BASOPHILS 0.1 thou/uL (0.0-0.2); ABSOLUTE EOSINOPHILS 0.1 thou/uL (0.0-0.7); ABSOLUTE LYMPHOCYTES 0.7 thou/uL (0.8-5.3); ABSOLUTE MONOCYTES 0.4 thou/uL (0.0-1.2); ABSOLUTE NEUTROPHILS 8.7 thou/uL (1.6-8.1); BASOPHILS 0.7 %; EOSINOPHILS 0.7 %; HEMATOCRIT 31.8 % (37.0-47.0); HEMOGLOBIN 10.5 gm/dL (12.0-15.0); LYMPHOCYTES 6.9 %; MCH 28.9 pg (26.0-34.0); MCHC 33.1 g/dL (28.0-37.0); MCV 87.4 fL (80.0-100.0); MPV 8.6 fl. (7.2-11.1); NUCLEATED RBCS 0 /100WBC; PLATELET COUNT* 146 thou/uL (150-400); POLYS 87.7 %; RBC 3.64 mil/uL (4.20-5.00); RDW-CV 14.8 % (10.5-14.5)
[2020-12-10 08:13] LABS: CALCIUM 7.1 mg/dL (8.5-10.1); CREATININE 0.9 mg/dL (0.6-1.3); POTASSIUM 4.8 mmol/L (3.5-5.1)
[2020-12-10 08:17] LABS: ALBUMIN 1.9 g/dL (3.4-5.0); TOTAL BILIRUBIN 0.6 mg/dL (<0.1-1.0); TOTAL PROTEIN 4.7 g/dL (6.4-8.2)
[2020-12-10 09:15] LABS: PCO2 36.5 mmHg (35.0-45.0); PO2 100.7 mmHg (75.0-100.0); pH 7.404 (7.340-7.450)
--- NOTE | 2020-12-10 11:25 | EKG ---
[place] [address] ELECTROCARDIOGRAM REPORT Name: JOHNALIDA Room: [place] [address] ADM IN [facility].#: [id number] Admission: 12/10/20 Attend Phys: Michele Genao DO Discharge: Date of : 55 Date of Service: 12/09/201928 Report #: [id number] THIS REPORT FOR: //name// [facility] ED Test Date: 2020-12-09 Test Time: 19:29:42 Pat Name: ALIDA LOPEZ Department: Room: [facility] Gender: F Marketing Data Specialist: : 1955 Requested By: Paola Claire Order Number: [id number] MD: Miguel Ángel Hayes Measurements Intervals [place] Rate: 66 P: 56 DC: 184 QRS: 6 QRSD: 101 T: 171 QT: 496 QTc: 520 Interpretive Statements Sinus rhythm Abnrm T, consider ischemia, anterolateral lds Prolonged QT interval Compared to ECG 12/08/2020 09:12:05 no change Electronically Signed On 12-10-2020 11:25:35 CDT by Miguel Ángel Hayes [email or web address] <ELECTRONICALLY SIGNED> By: Miguel Ángel Hayes MD, [facility] 12/10/20 1125 28 28 Miguel Ángel Hayes MD, [facility] /EPI
[2020-12-10 17:40] VITALS: BP 95/41
[2020-12-10 20:00] VITALS: BP 110/52
[2020-12-11] VITALS: BP 105/49
[2020-12-11 04:00] VITALS: BP 116/52
[2020-12-11 05:04] LABS: ABSOLUTE LYMPHOCYTES 0.8 thou/uL (0.8-5.3); ABSOLUTE MONOCYTES 0.5 thou/uL (0.0-1.2); ABSOLUTE NEUTROPHILS 5.8 thou/uL (1.6-8.1); BASOPHILS 0.4 %; EOSINOPHILS 0.1 %; HEMATOCRIT 27.8 % (37.0-47.0); HEMOGLOBIN 8.9 gm/dL (12.0-15.0); LYMPHOCYTES 11.7 %; MCH 28.3 pg (26.0-34.0); MCV 88.2 fL (80.0-100.0); MONOCYTES 7.5 %; MPV 8.8 fl. (7.2-11.1); NUCLEATED RBCS 1 /100WBC; PLATELET COUNT* 157 thou/uL (150-400); POLYS 80.3 %; RBC 3.15 mil/uL (4.20-5.00); RDW-CV 14.8 % (10.5-14.5); WBC 7.3 thou/uL (4.0-11.0)
[2020-12-11 05:16] LABS: CALCIUM 7.3 mg/dL (8.5-10.1); CREATININE 0.8 mg/dL (0.6-1.3); POTASSIUM 4.3 mmol/L (3.5-5.1)
[2020-12-11 08:00] VITALS: BP 130/60
[2020-12-11 12:00] VITALS: BP 142/68
[2020-12-11 14:40] LABS: HEMATOCRIT 28.2 % (37.0-47.0); HEMOGLOBIN 9.1 gm/dL (12.0-15.0); MCH 28.6 pg (26.0-34.0); MCHC 32.2 g/dL (28.0-37.0); MCV 88.8 fL (80.0-100.0); MPV 8.5 fl. (7.2-11.1); RBC 3.17 mil/uL (4.20-5.00); RDW-CV 14.6 % (10.5-14.5); WBC 8.3 thou/uL (4.0-11.0)
[2020-12-11 16:00] VITALS: BP 133/84
[2020-12-11 20:00] VITALS: BP 128/53
[2020-12-12] VITALS (25 sets, daily range): BP systolic 57–137; BP diastolic 32–75
[2020-12-12 07:27] LABS: ABSOLUTE BASOPHILS 0.1 thou/uL (0.0-0.2); ABSOLUTE EOSINOPHILS 0.1 thou/uL (0.0-0.7); ABSOLUTE LYMPHOCYTES 1.6 thou/uL (0.8-5.3); ABSOLUTE MONOCYTES 0.7 thou/uL (0.0-1.2); ABSOLUTE NEUTROPHILS 12.9 thou/uL (1.6-8.1); BASOPHILS 0.6 %; EOSINOPHILS 0.7 %; HEMATOCRIT 40.1 % (37.0-47.0); HEMOGLOBIN 12.6 gm/dL (12.0-15.0); LYMPHOCYTES 10.5 %; MCH 28.1 pg (26.0-34.0); MCHC 31.4 g/dL (28.0-37.0); MCV 89.7 fL (80.0-100.0); MONOCYTES 4.7 %; MPV 9.6 fl. (7.2-11.1); NUCLEATED RBCS 3 /100WBC; PLATELET COUNT* 270 thou/uL (150-400); POLYS 83.5 %; RBC 4.47 mil/uL (4.20-5.00); RDW-CV 14.9 % (10.5-14.5); WBC 15.5 thou/uL (4.0-11.0)
[2020-12-12 07:37] LABS: ALBUMIN 1.7 g/dL (3.4-5.0); CALCIUM 7.1 mg/dL (8.5-10.1); CREATININE 1.2 mg/dL (0.6-1.3); POTASSIUM 5.3 mmol/L (3.5-5.1); TOTAL BILIRUBIN 0.7 mg/dL (<0.1-1.0)
--- NOTE | 2020-12-12 13:16 | OP ---
[address] [address] OPERATIVE REPORT Name: ALIDA LOPEZ Room: [address] IN M.R.#: [id number] Admission: 12/10/20 Attend Phys: Michele Genao DO Discharge: Date of : 55 Report #: [id number] THIS REPORT FOR: cc: Lambert Jordan,Michele Booth DO ~ cc: Torey Carl DO, James V. Linnick, DO DATE OF SURGERY: 12/10/2020 PREOPERATIVE DIAGNOSIS: Perforated viscus and recent Clostridium difficile infection. POSTOPERATIVE DIAGNOSIS: Transverse colon perforation and recent Clostridium difficile infection. PROCEDURES: Emergency exploratory laparotomy with transverse colon resection with oeqs-hf-zmsj anastomosis, partial omentectomy, takedown of the splenic flexure and takedown of the hepatic flexure. SURGEON: Michele Genao DO HARNESS RACING HANDICAPPER: Ministerio Davis DO ANESTHESIA: General endotracheal. ESTIMATED BLOOD LOSS: 200 mL. COMPLICATIONS: None. DESCRIPTION OF PROCEDURE: After obtaining proper consents and discussing risks and complications with the patient, she was taken to the operating room, laid in the supine position and administered general anesthesia. A Lundy catheter had already been placed. We had Anesthesia place an arterial line and also a central line was placed while the patient was under general anesthesia. We then prepped and draped the patient in the usual sterile fashion. A time-out was performed. We confirmed the appropriate patient and the procedure. Preoperative antibiotics had been given. SCDs were in place. We then made a small periumbilical skin incision with a #10 scalpel blade. This was carried down through the skin into the subcutaneous tissue using electrocautery for hemostasis. Once the fascia was encountered, it was incised along the midline. The peritoneum was then bluntly opened using a hemostat. As soon as the peritoneum was opened, a large oswald of air was identified. The peritoneum was then opened for the entire length of the incision. We did have to enlarge the incision after this. After a brief moment of exploring, I had suspected that the perforation was in the area of the cecum. However, [place] [address] OPERATIVE REPORT Name: JOHNALIDA SAMANTHA Room: [address] IN [facility].#: [id number] Admission: 12/10/20 Attend Phys: Michele Genao DO Discharge: Date of : 55 Report #: [id number] identified the cecum, I did not find any area of perforation; however, I did feel an area of inflammation in the mid transverse colon, so we extended the incision more cephalad in order to get a better visualization of this. I was then able to bring the transverse colon up into the incision and we identified an area, where some fat had surrounded the transverse colon and there was a definite inflammatory response in this area. I was able to sweep some of this fat away and immediately identified 2 small holes within the transverse colon. The remaining colon other than the transverse appeared to be normal. We explored again the right colon all the way up through the hepatic flexure, the transverse colon, splenic flexure, descending colon and sigmoid colon. There was also noted to be a very large uterine mass, which we had seen on the preoperative CT scan and were aware of a very large fibroid, which was calcified on the uterus. There was some fluid identified within the peritoneal cavity, but this was not purulent and not gross stool or succus entericus. Once the abdomen was explored and we did identify the area of perforation, I then placed a Danelle retractor. We then began to free up the transverse colon. In order to do this, I had to take down first the hepatic flexure. This was done using electrocautery and blunt dissection. Going around the hepatic flexure, I did identify the duodenum and kept it out of harm's way. We freed the entire right colon all the way down to the area of the cecum and appendix. The appendix was identified and appeared normal. We then continued this dissection along the transverse colon mesentery. The gallbladder was slightly adherent to the mesentery, which was taken down using blunt dissection and also electrocautery. I then continued the dissection through the gastrocolic omentum and opened the lesser sac. I then continued the dissection laterally. We were then using the electrocautery and also the LigaSure Impact device. The splenic flexure was quite high, so at this point, I began dissection down on the descending colon. I took down the white line of Toldt along the left colon and was going up towards the splenic flexure using electrocautery and then converted to LigaSure device as I rounded the area of the splenic flexure. I also used blunt dissection in order to mobilize the splenic flexure without injuring the spleen or surrounding structures. Once the entire splenic flexure was mobilized, we were able to determine the area that we wanted to resect. I resected a fairly large area of the transverse colon by opening an avascular window in the mesentery and then firing a MELINA-75 across both the proximal and distal ends. I then used the LigaSure Impact device to sequentially clamp and divide the mesentery including the middle colic artery. We then passed this area off as specimen. I then noted that the distal staple line appeared to be leaking, so we extended our dissection a little bit and removed another segment of the distal transverse colon by firing another MELINA across this. We were then able to bring the proximal and distal ends together easily with no tension. I then performed a cgey-nx-iyhj anastomosis by placing the proximal and distal ends together and opening a colotomy on both sides and then fired a MELINA 75 across this. I then was able to close the colotomy using a TA 60 stapling device. I performed oversew of the staple lines using 2-0 [place] [address] OPERATIVE REPORT Name: ALIDA LOPEZ Room: [address] IN .R.#: [id number] Admission: 12/10/20 Attend Phys: Michele Genao DO Discharge: Date of : 55 Report #: [id number] fashion to cover all of the staple lines. We also had removed a portion of the omentum using the LigaSure. I then assured that there was good closure of the mesentery of the transverse colon. We then copiously irrigated all 4 quadrants of the abdomen. The patient had been on Eliquis prior to surgery, so there was some blood that had accumulated mostly in the right upper quadrant. This was suctioned and we assured good hemostasis before we closed. We then placed a 19-St Lucian Dalton-Tellez drain through a separate stab incision in the left side of the abdomen and this drain was sutured in place using 2-0 nylon suture. We then closed the peritoneum and fascia together using a running #1 looped PDS suture. The subcutaneous tissues were closed using a 3-0 Vicryl suture and the skin was closed using virgilio. We then placed a Prevena VAC dressing over top of the incision. The patient was then transported to the recovery room, still intubated and in stable condition. Sponge, needle and instrument counts were all correct at the end of the procedure. <ELECTRONICALLY SIGNED> By: Michele Genao DO 12/12/20 1316 1620 1812Aabbie Genao DO /nt
[2020-12-13] VITALS (47 sets, daily range): BP systolic 63–154; BP diastolic 29–76
[2020-12-13 05:53] LABS: HEMATOCRIT 38.1 % (37.0-47.0); MCH 28.5 pg (26.0-34.0); MCHC 31.4 g/dL (28.0-37.0); MCV 90.7 fL (80.0-100.0); MPV 9.1 fl. (7.2-11.1); NUCLEATED RBCS 1 /100WBC; PLATELET COUNT* 268 thou/uL (150-400); RDW-CV 15.1 % (10.5-14.5); WBC 24.5 thou/uL (4.0-11.0)
[2020-12-13 06:06] LABS: ALBUMIN 1.6 g/dL (3.4-5.0); CALCIUM 6.9 mg/dL (8.5-10.1); CREATININE 1.4 mg/dL (0.6-1.3); POTASSIUM 5.5 mmol/L (3.5-5.1); TOTAL BILIRUBIN 0.8 mg/dL (<0.1-1.0); TOTAL PROTEIN 4.7 g/dL (6.4-8.2)
[2020-12-13 06:56] LABS: ABSOLUTE EOSINOPHILS 0.2 thou/uL (0.0-0.7); ABSOLUTE LYMPHOCYTES 3.2 thou/uL (0.8-5.3); ABSOLUTE MONOCYTES 0.2 thou/uL (0.0-1.2); ABSOLUTE NEUTROPHILS 20.8 thou/uL (1.6-8.1); ANISOCYTOSIS 1+; MYELOCYTES 1 %; PLATELET ESTIMATE ADEQUATE; POIKILOCYTOSIS 1+; POLYCHROMASIA 1+
[2020-12-13 09:43] LABS: BE -6.3 mmol/L (-2 to +3); PCO2 25.3 mmHg (35.0-45.0); PO2 82.7 mmHg (75.0-100.0)
--- NOTE | 2020-12-13 10:08 | PATH ---
[facility] [address] [place] [address] PATHOLOGY RPT PROCEDURE Name: ALIDA LOPEZ Room: [address] ADM IN M.R.#: [id number] Admission: 12/10/20 Date of : 55 Discharge: Report #: [id number] Path Case #: [id number] [facility] Accession Number: [id number] . 01 Material submitted: . colon - TRANSVERSE COLON SMALL PIECE ADDITIONAL DISTAL MARGIN. Modifiers: transverse . 01 Clinical history: . PERFORATED TRANSVERSE COLON . 02 Diagnosis: Transverse colon and small piece additional distal margin: - Two segments of benign colon with severe active colitis including ulcerations and, in longer segment, transmural perforations. - Two benign pericolic lymph nodes. See comment. . (LAURA:emanuel; 12/11/2020) [facility] 12/11/2020 [facility]2 Local . 02 Comment: Review of Dr. Maame Acevedo's history and physical dated 12/10/2020 reveals the patient to have been discharged from a prolonged hospitalization the day before secondary to C. difficile colitis, colonic dilatation and concerns for toxic megacolon. . (LAURA:mml; 12/11/2020) . 02 Electronically signed: . Pratik Walters MD, Pathologist NPI- [id number] . 01 Gross description: . The specimen is received in formalin, labeled "Alida Lopez and transverse colon, small piece additional distal margin". It consists of an unoriented segment of transverse colon measuring 26.0 cm long by 3.0 cm in diameter (segment #1). Both margins are stapled. Identified on the serosa are multiple perforations ranging from 0.1-0.2 cm in greatest dimension. The perforations measure 2.0 cm from the closest margin (inked green). The surrounding serosa appears markedly hemorrhagic. A moderate amount of attached mesenteric and omental fat is present. Sectioning reveals gonzalez, hemorrhagic, focally effaced, irregular appearing mucosal folds. The colon wall averages 0.4 cm thick. Sectioning through the attached fat reveals 2 probable lymph nodes. Also identified within the specimen container is an unoriented segment of bowel measuring 3.5 cm long by 2.7 cm in diameter (segment #2 ). Both margins are stapled. The serosa appears gonzalez and smooth with a moderate amount of attached fat. Sectioning reveals gonzalez, focally hemorrhagic, [place] [address] PATHOLOGY RPT PROCEDURE Name: ALIDA LOPEZ Room: [facility] IN ..#: [id number] Admission: 12/10/20 Date of : 55 Discharge: Report #: [id number] Path Case #: [id number] focally irregular appearing mucosal folds. The bowel wall averages 0.3 cm thick. No abnormalities are grossly identified. Fabric And Textile Factory Worker sections are submitted as follows: A1: Segment #1, parts sales representative sections of perforations, 12 cm from green inked margin A2: Segment #1, parts sales representative sections within 10 cm of green inked margin A3: Segment #1, parts sales representative sections greater than 15 cm from green inked margin A4: Segment #2, parts sales representative sections A5: 2 probable lymph nodes, intact (MRF; 12/10/2020) MFE/MFE 12/10/2020 1630 Local . 02 Pathologist provided ICD-10: K52.9, K63.3 . 02 CPT . 414308 Specimen Comment: A courtesy copy of this report has been sent to [phone] Specimen Comment: Report sent to Specimen Comment: A duplicate report has been generated due to demographic updates. Performed at: 01 [facility] [address], [place], [place] [id number] MD Fredi Rodney MD Phone: [phone] Performed at: 02 [facility] [place] [address] [facility] [place], [place] [id number] MD Pratik Walters MD Phone: [phone]
[2020-12-14] VITALS (75 sets, daily range): BP systolic 77–259; BP diastolic 40–250
[2020-12-14 04:53] LABS: BE -4.6 mmol/L (-2 to +3); PCO2 29.7 mmHg (35.0-45.0); PO2 77.3 mmHg (75.0-100.0); pH 7.422 (7.340-7.450)
[2020-12-14 05:57] LABS: ABSOLUTE BASOPHILS 0.1 thou/uL (0.0-0.2); ABSOLUTE EOSINOPHILS 0.2 thou/uL (0.0-0.7); ABSOLUTE MONOCYTES 0.8 thou/uL (0.0-1.2); ABSOLUTE NEUTROPHILS 16.8 thou/uL (1.6-8.1); BASOPHILS 0.6 %; EOSINOPHILS 1.2 %; HEMATOCRIT 29.3 % (37.0-47.0); MCH 29.1 pg (26.0-34.0); MCHC 32.3 g/dL (28.0-37.0); MCV 90.1 fL (80.0-100.0); MONOCYTES 4.1 %; MPV 8.8 fl. (7.2-11.1); NUCLEATED RBCS 0 /100WBC; POLYS 84.1 %; RBC 3.26 mil/uL (4.20-5.00); RDW-CV 15.7 % (10.5-14.5)
[2020-12-14 06:09] LABS: HEMOGLOBIN 9.5 gm/dL (12.0-15.0); PLATELET COUNT* 193 thou/uL (150-400)
[2020-12-14 06:14] LABS: ALBUMIN 1.2 g/dL (3.4-5.0); CALCIUM 6.4 mg/dL (8.5-10.1); CREATININE 0.8 mg/dL (0.6-1.3); TOTAL BILIRUBIN 0.6 mg/dL (<0.1-1.0); TOTAL PROTEIN 4.2 g/dL (6.4-8.2)
[2020-12-14 06:18] LABS: POTASSIUM 3.8 mmol/L (3.5-5.1)
[2020-12-15] VITALS (67 sets, daily range): BP systolic 89–154; BP diastolic 40–77
[2020-12-15 03:01] LABS: ABSOLUTE BASOPHILS 0.1 thou/uL (0.0-0.2); ABSOLUTE EOSINOPHILS 0.4 thou/uL (0.0-0.7); ABSOLUTE LYMPHOCYTES 1.2 thou/uL (0.8-5.3); ABSOLUTE MONOCYTES 0.5 thou/uL (0.0-1.2); ABSOLUTE NEUTROPHILS 9.2 thou/uL (1.6-8.1); BASOPHILS 0.8 %; EOSINOPHILS 3.7 %; HEMOGLOBIN 8.8 gm/dL (12.0-15.0); LYMPHOCYTES 10.9 %; MCH 29.3 pg (26.0-34.0); MCHC 32.7 g/dL (28.0-37.0); MCV 89.7 fL (80.0-100.0); MONOCYTES 4.4 %; MPV 8.5 fl. (7.2-11.1); NUCLEATED RBCS 0 /100WBC; PLATELET COUNT* 146 thou/uL (150-400); POLYS 80.2 %; RBC 3.01 mil/uL (4.20-5.00); RDW-CV 15.6 % (10.5-14.5); WBC 11.5 thou/uL (4.0-11.0)
[2020-12-15 03:39] LABS: CALCIUM 6.5 mg/dL (8.5-10.1); CREATININE 0.5 mg/dL (0.6-1.3); MAGNESIUM 1.6 mg/dL (1.8-2.4); PHOSPHORUS* 2.1 mg/dL (2.5-4.9); POTASSIUM 3.2 mmol/L (3.5-5.1)
[2020-12-15 05:27] LABS: BE -4.5 mmol/L (-2 to +3); PCO2 34.5 mmHg (35.0-45.0); PO2 89.8 mmHg (75.0-100.0)
[2020-12-15 09:32] LABS: PCO2 29.7 mmHg (35.0-45.0); PO2 83.5 mmHg (75.0-100.0); pH 7.466 (7.340-7.450)
[2020-12-15 12:37] LABS: CALCIUM 6.7 mg/dL (8.5-10.1); CREATININE 0.5 mg/dL (0.6-1.3)
[2020-12-16] VITALS (38 sets, daily range): BP systolic 89–254; BP diastolic 40–136
[2020-12-16 04:35] LABS: ABSOLUTE EOSINOPHILS 0.2 thou/uL (0.0-0.7); ABSOLUTE LYMPHOCYTES 0.7 thou/uL (0.8-5.3); ABSOLUTE MONOCYTES 0.3 thou/uL (0.0-1.2); ABSOLUTE NEUTROPHILS 4.9 thou/uL (1.6-8.1); BASOPHILS 0.6 %; EOSINOPHILS 2.5 %; HEMATOCRIT 23.1 % (37.0-47.0); HEMOGLOBIN 7.6 gm/dL (12.0-15.0); LYMPHOCYTES 12.3 %; MCH 29.7 pg (26.0-34.0); MCHC 32.8 g/dL (28.0-37.0); MCV 90.4 fL (80.0-100.0); MONOCYTES 4.1 %; MPV 8.8 fl. (7.2-11.1); NUCLEATED RBCS 0 /100WBC; PLATELET COUNT* 116 thou/uL (150-400); POLYS 80.5 %; RBC 2.56 mil/uL (4.20-5.00); RDW-CV 16.1 % (10.5-14.5); WBC 6.1 thou/uL (4.0-11.0)
[2020-12-16 04:56] LABS: CALCIUM 6.6 mg/dL (8.5-10.1); CREATININE 0.5 mg/dL (0.6-1.3); MAGNESIUM 1.6 mg/dL (1.8-2.4); POTASSIUM 3.3 mmol/L (3.5-5.1)
--- NOTE | 2020-12-16 14:06 | PATH ---
[place] [address] PATHOLOGY RPT PROCEDURE Name: ALIDA LOPEZ Room: [address] ADM IN M.R.#: [id number] Admission: 12/10/20 Date of : 55 Discharge: Report #: [id number] Path Case #: [id number] [facility] Accession Number: [id number] . 01 Material submitted: . colon - COLON . 01 Clinical history: . EXPLORATORY LAPAROTOMY (+++) ACUTE ABDOMINAL PAIN PERFORATED VISCUS . 02 Diagnosis: Colon: - Benign terminal ileum, appendix, and colon with extensive active colitis including ulcerations, focally sutured and stapled perforation in ascending colon and chronic and acute serositis. - Three benign pericolic lymph nodes. - See comment. (LAURA:pit; 12/16/2020) QTP 12/16/2020 1208 Local . 02 Comment: Prominent ulceration is noted in the section taken of the distal ascending colonic margin (A2). This patient had a recent prior prolonged hospitalization secondary to C. difficile colitis with concerns for toxic megacolon and was noted to have an anastomotic leak after transverse colectomy was performed. (LAURA:[facility]; 12/16/2020) . 02 Electronically signed: . Pratik Walters MD, Pathologist NPI- [id number] . 01 Gross description: . The specimen is received in formalin, labeled "Alida Lopez and colon". It consists of a segment of terminal ileum (2.5 cm long by 2.5 cm in diameter) contiguous with cecum and ascending colon (44.0 cm long and ranging in diameter from 2.5-4.5 cm in greatest dimension) with attached appendix (4.5 cm long by 0.7 cm in diameter). Both margins are stapled. The serosa appears gonzalez-tran and smooth with a focally sutured and focally stapled perforation (2.0 x 1.0 cm) in the ascending colon measuring 22.5 cm from the proximal margin. A moderate amount of attached fat is present. Sectioning reveals gonzalez, focally hemorrhagic, markedly ulcerated and effaced mucosa within the ascending colon. The colon wall averages 0.4 cm thick. The terminal ileum displays gonzalez unremarkable mucosal folds with by 0.3 cm wall thickness. Sectioning through the attached fat reveals multiple probable lymph nodes ranging from 0.2-1.0 [place] [address] PATHOLOGY RPT PROCEDURE Name: ALIDA LOPEZ Room: [facility] IN ..#: [id number] Admission: 12/10/20 Date of : 55 Discharge: Report #: [id number] Path Case #: [id number] dimension. At Risk Paraprofessional sections are submitted as follows: A1: Proximal small bowel margin A2: Distal ascending colon margin A3: Colon, 10 cm from proximal margin A4: Colon, 20 cm from proximal margin A5: Colon, 30 cm from proximal margin A6: Colon, 40 cm from proximal margin A7: Perforation A8: Appendix cross-section and distal tip (tip entirely submitted) A9: Cecum and terminal ileum A10: Ileocecal valve A11: 4 probable lymph node, intact (MRF; 12/13/2020) MFE/MFE 12/13/2020 1648 Local . 02 Pathologist provided ICD-10: K52.9, K63.3, K65.8 . 02 CPT . 904470 Specimen Comment: A courtesy copy of this report has been sent to [phone] Specimen Comment: [phone], Specimen Comment: Report sent to , DR TAMAYO / DR GALLEGOS Performed at: 01 [facility] [address], [place] [id number] MD Fredi Rodney MD Phone: [phone] Performed at: 02 [facility] [address] , [place], [place] [id number] MD Pratik Walters MD Phone: [phone]
[2020-12-17 00:46] VITALS: BP 114/58
[2020-12-17 05:03] VITALS: BP 104/47
[2020-12-17 05:13] LABS: ABSOLUTE BASOPHILS 0.1 thou/uL (0.0-0.2); ABSOLUTE EOSINOPHILS 0.1 thou/uL (0.0-0.7); ABSOLUTE LYMPHOCYTES 0.7 thou/uL (0.8-5.3); ABSOLUTE MONOCYTES 0.3 thou/uL (0.0-1.2); ABSOLUTE NEUTROPHILS 4.6 thou/uL (1.6-8.1); BASOPHILS 1.1 %; EOSINOPHILS 1.6 %; HEMATOCRIT 26.1 % (37.0-47.0); HEMOGLOBIN 8.5 gm/dL (12.0-15.0); LYMPHOCYTES 12.9 %; MCH 29.9 pg (26.0-34.0); MCHC 32.5 g/dL (28.0-37.0); MCV 91.8 fL (80.0-100.0); MONOCYTES 5.5 %; MPV 8.8 fl. (7.2-11.1); NUCLEATED RBCS 0 /100WBC; PLATELET COUNT* 127 thou/uL (150-400); POLYS 78.9 %; RBC 2.85 mil/uL (4.20-5.00); RDW-CV 17.3 % (10.5-14.5); WBC 5.8 thou/uL (4.0-11.0)
[2020-12-17 05:27] LABS: CALCIUM 6.8 mg/dL (8.5-10.1); CREATININE 0.5 mg/dL (0.6-1.3); MAGNESIUM 1.9 mg/dL (1.8-2.4); PHOSPHORUS* 2.1 mg/dL (2.5-4.9); POTASSIUM 3.9 mmol/L (3.5-5.1)
[2020-12-17 07:59] VITALS: BP 108/41
[2020-12-17 17:42] VITALS: BP 117/57
[2020-12-17 19:50] VITALS: BP 130/60
[2020-12-18] VITALS (7 sets, daily range): BP systolic 100–130; BP diastolic 49–69
[2020-12-18 05:31] LABS: ABSOLUTE BASOPHILS 0.1 thou/uL (0.0-0.2); ABSOLUTE EOSINOPHILS 0.1 thou/uL (0.0-0.7); ABSOLUTE MONOCYTES 0.4 thou/uL (0.0-1.2); ABSOLUTE NEUTROPHILS 5.3 thou/uL (1.6-8.1); BASOPHILS 1.3 %; EOSINOPHILS 1.5 %; HEMATOCRIT 29.3 % (37.0-47.0); HEMOGLOBIN 9.6 gm/dL (12.0-15.0); LYMPHOCYTES 14.7 %; MCH 29.9 pg (26.0-34.0); MCHC 32.7 g/dL (28.0-37.0); MCV 91.5 fL (80.0-100.0); MONOCYTES 6.1 %; MPV 8.5 fl. (7.2-11.1); NUCLEATED RBCS 0 /100WBC; PLATELET COUNT* 132 thou/uL (150-400); POLYS 76.4 %; RBC 3.21 mil/uL (4.20-5.00); RDW-CV 17.7 % (10.5-14.5)
[2020-12-18 05:53] LABS: CALCIUM 7.3 mg/dL (8.5-10.1); CREATININE 0.5 mg/dL (0.6-1.3); MAGNESIUM 1.8 mg/dL (1.8-2.4); PHOSPHORUS* 1.9 mg/dL (2.5-4.9); POTASSIUM 3.7 mmol/L (3.5-5.1)
[2020-12-19 04:39] VITALS: BP 101/42
[2020-12-19 05:10] LABS: ABSOLUTE BASOPHILS 0.1 thou/uL (0.0-0.2); ABSOLUTE EOSINOPHILS 0.1 thou/uL (0.0-0.7); ABSOLUTE LYMPHOCYTES 1.3 thou/uL (0.8-5.3); ABSOLUTE MONOCYTES 0.5 thou/uL (0.0-1.2); ABSOLUTE NEUTROPHILS 7.1 thou/uL (1.6-8.1); HEMATOCRIT 30.2 % (37.0-47.0); HEMOGLOBIN 9.8 gm/dL (12.0-15.0); LYMPHOCYTES 13.8 %; MCH 30.1 pg (26.0-34.0); MCHC 32.5 g/dL (28.0-37.0); MCV 92.6 fL (80.0-100.0); MPV 8.9 fl. (7.2-11.1); NUCLEATED RBCS 0 /100WBC; PLATELET COUNT* 159 thou/uL (150-400); POLYS 78.2 %; RBC 3.26 mil/uL (4.20-5.00); RDW-CV 20.1 % (10.5-14.5); WBC 9.1 thou/uL (4.0-11.0)
[2020-12-19 05:36] LABS: ANION GAP < 0 mmol/L (7-16); BUN 13 mg/dL (7-18); CHLORIDE 102 mmol/L (98-107); CO2 32 mmol/L (21-32); CREATININE 0.6 mg/dL (0.6-1.3); GLUCOSE 228 mg/dL (70-99); MAGNESIUM 1.9 mg/dL (1.8-2.4); POTASSIUM 3.4 mmol/L (3.5-5.1); SODIUM 133 mmol/L (136-145)
[2020-12-19 07:02] LABS: ANISOCYTOSIS 2+; MACROCYTES 2+
[2020-12-19 08:39] VITALS: BP 112/60
[2020-12-19 12:00] VITALS: BP 113/71
[2020-12-19 16:00] VITALS: BP 104/52
[2020-12-20 01:03] VITALS: BP 100/62
[2020-12-20 05:08] VITALS: BP 94/56
[2020-12-20 06:07] LABS: ABSOLUTE BASOPHILS 0.2 thou/uL (0.0-0.2); ABSOLUTE EOSINOPHILS 0.3 thou/uL (0.0-0.7); ABSOLUTE LYMPHOCYTES 1.7 thou/uL (0.8-5.3); ABSOLUTE MONOCYTES 0.7 thou/uL (0.0-1.2); ABSOLUTE NEUTROPHILS 6.5 thou/uL (1.6-8.1); EOSINOPHILS 3.5 %; HEMATOCRIT 27.9 % (37.0-47.0); HEMOGLOBIN 9.1 gm/dL (12.0-15.0); LYMPHOCYTES 18.2 %; MCH 30.6 pg (26.0-34.0); MCHC 32.7 g/dL (28.0-37.0); MCV 93.8 fL (80.0-100.0); MONOCYTES 7.4 %; MPV 9.5 fl. (7.2-11.1); NUCLEATED RBCS 0 /100WBC; PLATELET COUNT* 161 thou/uL (150-400); POLYS 68.9 %; RBC 2.97 mil/uL (4.20-5.00); RDW-CV 22.2 % (10.5-14.5); WBC 9.4 thou/uL (4.0-11.0)
[2020-12-20 06:21] LABS: ALBUMIN 1.1 g/dL (3.4-5.0); CALCIUM 7.2 mg/dL (8.5-10.1); CREATININE 0.6 mg/dL (0.6-1.3); POTASSIUM 3.9 mmol/L (3.5-5.1); TOTAL BILIRUBIN 0.2 mg/dL (<0.1-1.0); TOTAL PROTEIN 4.8 g/dL (6.4-8.2)
[2020-12-20 06:25] LABS: MAGNESIUM 1.9 mg/dL (1.8-2.4); PHOSPHORUS* 2.6 mg/dL (2.5-4.9)
[2020-12-20 08:19] VITALS: BP 94/62
[2020-12-20 12:00] VITALS: BP 96/56
[2020-12-20 16:00] VITALS: BP 98/52
[2020-12-20 19:30] VITALS: BP 103/59
[2020-12-21 01:24] VITALS: BP 87/40
[2020-12-21 04:44] VITALS: BP 95/44
[2020-12-21 06:50] LABS: ABSOLUTE BASOPHILS 0.1 thou/uL (0.0-0.2); ABSOLUTE EOSINOPHILS 0.4 thou/uL (0.0-0.7); ABSOLUTE LYMPHOCYTES 2.3 thou/uL (0.8-5.3); ABSOLUTE MONOCYTES 0.5 thou/uL (0.0-1.2); ABSOLUTE NEUTROPHILS 7.6 thou/uL (1.6-8.1); BASOPHILS 1.3 %; EOSINOPHILS 3.9 %; HEMATOCRIT 30.6 % (37.0-47.0); MCH 30.3 pg (26.0-34.0); MCHC 32.6 g/dL (28.0-37.0); MCV 92.8 fL (80.0-100.0); MONOCYTES 4.7 %; MPV 9.5 fl. (7.2-11.1); NUCLEATED RBCS 0 /100WBC; PLATELET COUNT* 213 thou/uL (150-400); POLYS 69.1 %; RBC 3.29 mil/uL (4.20-5.00); RDW-CV 21.4 % (10.5-14.5)
[2020-12-21 07:08] LABS: ALBUMIN 1.3 g/dL (3.4-5.0); CALCIUM 7.4 mg/dL (8.5-10.1); CREATININE 0.7 mg/dL (0.6-1.3); MAGNESIUM 1.8 mg/dL (1.8-2.4); PHOSPHORUS* 2.9 mg/dL (2.5-4.9); POTASSIUM 3.8 mmol/L (3.5-5.1); TOTAL BILIRUBIN 0.3 mg/dL (<0.1-1.0); TOTAL PROTEIN 5.5 g/dL (6.4-8.2)
[2020-12-21 08:00] VITALS: BP 99/56
[2020-12-21 12:00] VITALS: BP 83/52
[2020-12-21 16:00] VITALS: BP 108/50
[2020-12-21 20:00] VITALS: BP 104/54
[2020-12-22] VITALS (7 sets, daily range): BP systolic 85–99; BP diastolic 36–46
[2020-12-22 10:18] LABS: ABSOLUTE BASOPHILS 0.1 thou/uL (0.0-0.2); ABSOLUTE LYMPHOCYTES 1.7 thou/uL (0.8-5.3); ABSOLUTE MONOCYTES 0.3 thou/uL (0.0-1.2); ABSOLUTE NEUTROPHILS 8.3 thou/uL (1.6-8.1); BASOPHILS 0.5 %; EOSINOPHILS 0.2 %; HEMATOCRIT 29.6 % (37.0-47.0); HEMOGLOBIN 9.3 gm/dL (12.0-15.0); LYMPHOCYTES 16.4 %; MCH 29.8 pg (26.0-34.0); MCHC 31.5 g/dL (28.0-37.0); MCV 94.7 fL (80.0-100.0); MONOCYTES 2.8 %; MPV 9.8 fl. (7.2-11.1); NUCLEATED RBCS 0 /100WBC; PLATELET COUNT* 215 thou/uL (150-400); POLYS 80.1 %; RBC 3.13 mil/uL (4.20-5.00); RDW-CV 22.9 % (10.5-14.5); WBC 10.4 thou/uL (4.0-11.0)
[2020-12-22 10:26] LABS: ALBUMIN 1.2 g/dL (3.4-5.0); CALCIUM 7.2 mg/dL (8.5-10.1); CREATININE 0.7 mg/dL (0.6-1.3); POTASSIUM 3.8 mmol/L (3.5-5.1); TOTAL BILIRUBIN 0.4 mg/dL (<0.1-1.0); TOTAL PROTEIN 5.2 g/dL (6.4-8.2)
[2020-12-22 10:38] LABS: ANISOCYTOSIS 2+; PLATELET ESTIMATE ADEQUATE
[2020-12-23] VITALS (7 sets, daily range): BP systolic 93–110; BP diastolic 35–52
[2020-12-23 04:50] LABS: ALBUMIN 1.2 g/dL (3.4-5.0); ALKALINE PHOSPHATASE 157 U/L (46-116); ANION GAP 2 mmol/L (7-16); BUN 10 mg/dL (7-18); CALCIUM 7.2 mg/dL (8.5-10.1); CHLORIDE 102 mmol/L (98-107); CO2 31 mmol/L (21-32); CREATININE 0.6 mg/dL (0.6-1.3); GLUCOSE 158 mg/dL (70-99); MAGNESIUM 1.7 mg/dL (1.8-2.4); SGOT 27 U/L (15-37); SGPT < 6 U/L (30-65); SODIUM 135 mmol/L (136-145); TOTAL BILIRUBIN 0.3 mg/dL (<0.1-1.0); TOTAL PROTEIN 4.7 g/dL (6.4-8.2)
[2020-12-23 05:04] LABS: ABSOLUTE LYMPHOCYTES 1.2 thou/uL (0.8-5.3); ABSOLUTE MONOCYTES 0.3 thou/uL (0.0-1.2); ABSOLUTE NEUTROPHILS 3.5 thou/uL (1.6-8.1); BASOPHILS 0.6 %; EOSINOPHILS 0.9 %; HEMATOCRIT 26.3 % (37.0-47.0); HEMOGLOBIN 8.6 gm/dL (12.0-15.0); LYMPHOCYTES 24.5 %; MCH 30.7 pg (26.0-34.0); MCHC 32.6 g/dL (28.0-37.0); MCV 94.1 fL (80.0-100.0); MONOCYTES 5.7 %; MPV 8.9 fl. (7.2-11.1); NUCLEATED RBCS 0 /100WBC; PLATELET COUNT* 211 thou/uL (150-400); POLYS 68.3 %; RDW-CV 23.9 % (10.5-14.5); WBC 5.1 thou/uL (4.0-11.0)
[2020-12-24 00:01] VITALS: BP 123/55
[2020-12-24 04:20] VITALS: BP 139/60
[2020-12-24 04:52] LABS: ABSOLUTE EOSINOPHILS 0.1 thou/uL (0.0-0.7); ABSOLUTE LYMPHOCYTES 1.3 thou/uL (0.8-5.3); ABSOLUTE MONOCYTES 0.3 thou/uL (0.0-1.2); ABSOLUTE NEUTROPHILS 2.9 thou/uL (1.6-8.1); BASOPHILS 0.9 %; EOSINOPHILS 2.1 %; HEMATOCRIT 26.5 % (37.0-47.0); HEMOGLOBIN 8.6 gm/dL (12.0-15.0); LYMPHOCYTES 28.6 %; MCHC 32.6 g/dL (28.0-37.0); MONOCYTES 6.2 %; MPV 8.6 fl. (7.2-11.1); NUCLEATED RBCS 0 /100WBC; PLATELET COUNT* 213 thou/uL (150-400); POLYS 62.2 %; RBC 2.79 mil/uL (4.20-5.00); RDW-CV 23.2 % (10.5-14.5); WBC 4.7 thou/uL (4.0-11.0)
[2020-12-24 05:57] LABS: ALBUMIN 1.3 g/dL (3.4-5.0); CALCIUM 7.4 mg/dL (8.5-10.1); CREATININE 0.5 mg/dL (0.6-1.3); MAGNESIUM 1.8 mg/dL (1.8-2.4); PHOSPHORUS* 2.5 mg/dL (2.5-4.9); TOTAL BILIRUBIN 0.2 mg/dL (<0.1-1.0); TOTAL PROTEIN 4.8 g/dL (6.4-8.2)
[2020-12-24 08:00] VITALS: BP 108/49
[2020-12-24 08:43] LABS: ANISOCYTOSIS 1+; PLATELET ESTIMATE ADEQUATE
--- NOTE | 2020-12-24 11:20 | OP ---
[address] [address] OPERATIVE REPORT Name: ALIDA LOPEZ Room: [address] IN .R.#: [id number] Admission: 12/10/20 Attend Phys: Michele Genao DO Discharge: Date of : 55 Report #: [id number] THIS REPORT FOR: cc: Lambert Jordan,Lambert Conley,Michele May DO ~ cc: Lambert Jordan DO DATE OF SURGERY: 12/12/2020 PREOPERATIVE DIAGNOSES: Sepsis and recent transverse colectomy with rofw-gb-fwjt anastomosis and Clostridium difficile colitis. POSTOPERATIVE DIAGNOSES: Anastomotic breakdown, feculent peritonitis, Clostridium difficile colitis. PROCEDURES: Emergency exploratory laparotomy with subtotal colectomy and ileostomy. SURGEON: Michele Genao DO RETAIL TRAINING MANAGER: Osman Montgomery DO SECOND FOOT WORKER: Dr. Yg Lorenz. THIRD FOOT WORKER: StudentDr. ____. FOURTH FOOT WORKER: Student Dr. Knowles ____. ANESTHESIA: General endotracheal. ESTIMATED BLOOD LOSS: Less than 50 mL COMPLICATIONS: None. INDICATIONS FOR PROCEDURE: The patient is a 65-year-old female who recently presented with abdominal distention and was found to have C. diff colitis. She was later discharged after progressing well and returned within 12 hours after that with severe abdominal pain and she was at that time found to have free air within the peritoneal cavity. She was taken to surgery where she underwent a transverse colectomy because it was found that she had 3 small areas of perforation in her transverse colon. The remainder of her colon appeared normal. Two days postoperatively, she began to show signs of sepsis with hypotension. She did not have any tachycardia, but she was on beta blockers and she also had a large amount of fluid from her RONNY drain, which appeared brown and murky. She did undergo a CT scan which did [place] [address] OPERATIVE REPORT Name: ALIDA LOPEZ SAMANTHA Room: [address] IN [facility]#: [id number] Admission: 12/10/20 Attend Phys: Michele Genao, Discharge: Date of : 55 Report #: [id number] perforation; however, based on her physical examination and the drain output, I recommended that she undergo emergency exploratory laparotomy again. DESCRIPTION OF PROCEDURE: After obtaining proper consents and discussing risks and complications with the patient who was very alert and oriented at the time, although her blood pressure was slightly low. We did take her to the operating room, laid in the supine position and administered general anesthesia. She already had a central venous catheter and a Lundy in. We did place an arterial line by anesthesia. Immediately after she was prepped and draped, we removed her virgilio from her previous surgery. We then opened the incision along the midline. I did identify the previous #1 looped PDS sutures, which were closing the peritoneum and fascia. These were opened. We immediately entered the abdominal cavity and right away found feculent peritonitis. We went right to the area of her anastomosis during exploration and identified that multiple areas along the anastomosis had broken down, even though there was Lembert sutures, which had been placed over top of the anastomosis. At this point, I used a 2-0 Vicryl suture to close some of the area to prevent more stool spillage. I then elected to perform a completion subtotal colectomy. Both the hepatic and splenic flexures had been taken down, so this was fairly easy. I did identify a small connection of the peritoneum to the ileocolic region, which was freed. I then identified the area that we would resect at the terminal ileum. I opened an avascular window and then fired a MELINA 55 across this area. Next, we used a LigaSure Impact device to sequentially clamp and divide the right colon and transverse mesentery and then continued beyond our anastomosis and went around the area which had been taken down for the splenic flexure and used the LigaSure Impact device to go all the way down to the sigmoid colon, I left a fairly large stump of the sigmoid colon by opening an avascular plane and fired a MELINA 75 across the sigmoid colon. We then passed off the colon as specimen. We then copiously irrigated the abdominal cavity with approximately 6-7 liters of saline solution until it was fairly clear, paying special attention to the pelvis, right pericolic and left pericolic gutters as well as the subdiaphragmatic space on both the right and left side. Once this was all complete, we chose an area for formation of an ileostomy. A small [place] of skin was removed using an Allis clamp and a scalpel and then electrocautery. I then dissected down to the fascia. A cruciate incision was made in the fascia. I then scored the muscle as well and the muscle and opened the peritoneum. I then was able to place a Cass clamp into the peritoneal cavity and brought up the terminal ileum. We had approximately 3 cm of terminal ileum on the outside. We secured this to the fascia using 2-0 PDS sutures. I then turned my attention to the abdominal cavity. We placed two 19-Bulgarian RONNY drains through separate stab incisions. We then closed the peritoneum and fascia again in a running fashion using #1 looped PDS suture. The subcutaneous tissues were closed using 3-0 Vicryl suture and virgilio. We then matured the ostomy in the standard Dania fashion. We then placed a sterile ostomy appliance as well as a Prevena VAC dressing. The patient was then transported [place] [address] OPERATIVE REPORT Name: ALIDA LOPEZ Room: [address] IN .R.#: [id number] Admission: 12/10/20 Attend Phys: Michele Genao DO Discharge: Date of : 55 Report #: [id number] unit in guarded condition. Sponge, needle and instrument counts were all correct at the end of the procedure. <ELECTRONICALLY SIGNED> By: Michele Genao DO 12/24/20 1120 1521 1658Aabbie Genao DO /nt
[2020-12-24 12:32] VITALS: BP 107/42
[2020-12-24 16:00] VITALS: BP 88/41
[2020-12-24 19:45] VITALS: BP 90/60
[2020-12-25 04:23] VITALS: BP 101/45
[2020-12-25 06:49] LABS: HEMATOCRIT 28.9 % (37.0-47.0); HEMOGLOBIN 9.4 gm/dL (12.0-15.0); MCHC 32.4 g/dL (28.0-37.0); MCV 95.4 fL (80.0-100.0); RBC 3.03 mil/uL (4.20-5.00); RDW-CV 24.2 % (10.5-14.5)
[2020-12-25 07:02] LABS: ALBUMIN 1.4 g/dL (3.4-5.0); CALCIUM 7.2 mg/dL (8.5-10.1); CREATININE 0.6 mg/dL (0.6-1.3); MAGNESIUM 1.7 mg/dL (1.8-2.4); POTASSIUM 3.6 mmol/L (3.5-5.1); TOTAL BILIRUBIN 0.2 mg/dL (<0.1-1.0)
[2020-12-25 08:00] VITALS: BP 1098/51
[2020-12-25 16:00] VITALS: BP 98/46
[2020-12-26 00:54] VITALS: BP 101/47
[2020-12-26 06:05] LABS: HEMATOCRIT 30.1 % (37.0-47.0); HEMOGLOBIN 9.7 gm/dL (12.0-15.0); MCH 30.4 pg (26.0-34.0); MCHC 32.3 g/dL (28.0-37.0); NUCLEATED RBCS 0 /100WBC; PLATELET COUNT* 236 thou/uL (150-400); RDW-CV 23.3 % (10.5-14.5); WBC 5.1 thou/uL (4.0-11.0)
[2020-12-26 06:20] LABS: ALBUMIN 1.6 g/dL (3.4-5.0); CALCIUM 7.3 mg/dL (8.5-10.1); CREATININE 0.6 mg/dL (0.6-1.3); POTASSIUM 3.4 mmol/L (3.5-5.1); TOTAL BILIRUBIN 0.2 mg/dL (<0.1-1.0); TOTAL PROTEIN 5.1 g/dL (6.4-8.2)
[2020-12-26 06:56] LABS: ABSOLUTE BASOPHILS 0.1 thou/uL (0.0-0.2); ABSOLUTE EOSINOPHILS 0.1 thou/uL (0.0-0.7); ABSOLUTE LYMPHOCYTES 1.8 thou/uL (0.8-5.3); ABSOLUTE MONOCYTES 0.3 thou/uL (0.0-1.2); ABSOLUTE NEUTROPHILS 2.9 thou/uL (1.6-8.1); ANISOCYTOSIS 1+; ATYPICAL LYMPHS 3 %; MYELOCYTES 1 %; PLATELET ESTIMATE ADEQUATE; POIKILOCYTOSIS 1+; POLYCHROMASIA Occasional
[2020-12-26 08:00] VITALS: BP 105/52
[2020-12-26 12:32] VITALS: BP 100/44
[2020-12-26 16:16] VITALS: BP 98/43
[2020-12-26 20:00] VITALS: BP 94/32
[2020-12-26 23:45] VITALS: BP 103/46
[2020-12-27 04:08] VITALS: BP 100/46
[2020-12-27 08:00] VITALS: BP 116/53
[2020-12-27 08:54] LABS: ABSOLUTE BASOPHILS 0.1 thou/uL (0.0-0.2); ABSOLUTE EOSINOPHILS 0.1 thou/uL (0.0-0.7); ABSOLUTE LYMPHOCYTES 2.8 thou/uL (0.8-5.3); ABSOLUTE MONOCYTES 0.3 thou/uL (0.0-1.2); ABSOLUTE NEUTROPHILS 2.3 thou/uL (1.6-8.1); BASOPHILS 1.1 %; EOSINOPHILS 2.1 %; HEMATOCRIT 29.5 % (37.0-47.0); HEMOGLOBIN 9.6 gm/dL (12.0-15.0); LYMPHOCYTES 51.3 %; MCH 30.8 pg (26.0-34.0); MCHC 32.6 g/dL (28.0-37.0); MCV 94.3 fL (80.0-100.0); MONOCYTES 4.9 %; MPV 8.3 fl. (7.2-11.1); NUCLEATED RBCS 0 /100WBC; PLATELET COUNT* 242 thou/uL (150-400); POLYS 40.6 %; RBC 3.13 mil/uL (4.20-5.00); RDW-CV 22.7 % (10.5-14.5); WBC 5.5 thou/uL (4.0-11.0)
[2020-12-27 09:09] LABS: ALBUMIN 1.6 g/dL (3.4-5.0); CALCIUM 7.5 mg/dL (8.5-10.1); CREATININE 0.5 mg/dL (0.6-1.3); POTASSIUM 3.8 mmol/L (3.5-5.1); TOTAL BILIRUBIN 0.2 mg/dL (<0.1-1.0); TOTAL PROTEIN 5.1 g/dL (6.4-8.2)
[2020-12-27] MEDS ORDERED: HYDROCODON-ACE1 EAC7 PO (11:57)
[2020-12-27] MEDS ORDERED: SORINE 80 MG TA80 M1 PO (11:57)
[2020-12-27 12:11] VITALS: BP 105/53
== END 2020-12-27 17:20 | DRG 329 ==
LOC: M.ERS 18:55 → M.TBA 12-10 00:10 → M.ICU 12-10 00:10 → M.TBA-ER 12-10 00:10 → M.2W 12-10 00:10 → M.TBA 12-10 02:46 → M.2W 12-10 17:52 → M.ICU 12-12 15:32 → M.2W 12-16 17:54
PROVIDERS: Anesthesiology; Internal Medicine; Personal Emergency Response Attendant; Student in an Organized Health Care Education/Training Program; Surgery; ADMIT Surgery; ATTEND Surgery
DX: K63.1 Perforation of intestine (nontraumatic) (principal); A41.9 Sepsis, unspecified organism; E43 Unspecified severe protein-calorie malnutrition; K65.8 Other peritonitis; R57.8 Other shock; K92.2 Gastrointestinal hemorrhage, unspecified; E87.2 Acidosis; I42.9 Cardiomyopathy, unspecified; I50.22 Chronic systolic (congestive) heart failure; N17.9 Acute kidney failure, unspecified; A04.72 Enterocolitis due to Clostridium difficile, not specified as recurrent; T82.539A Leakage of unspecified cardiac and vascular devices and implants, initial encounter; E11.9 Type 2 diabetes mellitus without complications; D50.9 Iron deficiency anemia, unspecified; I95.9 Hypotension, unspecified; I48.91 Unspecified atrial fibrillation; M10.9 Gout, unspecified; F32.9 Major depressive disorder, single episode, unspecified; E07.9 Disorder of thyroid, unspecified; E86.9 Volume depletion, unspecified; E86.0 Dehydration; E03.9 Hypothyroidism, unspecified; E87.6 Hypokalemia; E83.42 Hypomagnesemia; E83.39 Other disorders of phosphorus metabolism; Z20.822 Contact with and (suspected) exposure to COVID-19; Z85.3 Personal history of malignant neoplasm of breast; Z88.6 Allergy status to analgesic agent; Z88.2 Allergy status to sulfonamides; Z68.37 Body mass index [BMI] 37.0-37.9, adult; Y83.8 Other surgical procedures as the cause of abnormal reaction of the patient, or of later complication, without mention of misadventure at the time of the procedure; Y92.89 Other specified places as the place of occurrence of the external cause